=== PATIENT | female | born 1940 | race African-American/Black ===

== ENCOUNTER 2016-12-26 16:52 | Emergency (ER) | payer OTHER, MEDICAID ==
[~2016-12-26] VITALS: Ht 157.5 cm; Wt 53.1 kg
[~2016-12-26 16:52] MED LIST: AMIT PO; ASPI-231 PO; ATOR10TA PO; CARV6.2551 PO; ESTR0.3T PO; FLUT250M2 IN; FURO20TA3 PO; GABA300C8 PO; IBAN150T8 PO; LISI2.5T47 PO; OXYC325T14; PERCOT PO; POTA8TAB2 PO; PREMARIN PO
[2016-12-26 17:20] VITALS: BP 112/62
[2016-12-26] MEDS ORDERED: traMADol HCL 50 MG TAB PO ONE (19:00)
== END 2016-12-26 19:23 | disposition home or self-care (01) ==
LOC: ER 17:00 → EDUNIT# 17:00 → ER 19:23
DX: S52.502A Unspecified fracture of the lower end of left radius, initial encounter for closed fracture (principal); S52.202A Unspecified fracture of shaft of left ulna, initial encounter for closed fracture; S40.012A Contusion of left shoulder, initial encounter; S09.90XA Unspecified injury of head, initial encounter; M54.5 Low back pain; M54.2 Cervicalgia; E78.5 Hyperlipidemia, unspecified; I10 Essential (primary) hypertension; G89.29 Other chronic pain; Z88.6 Allergy status to analgesic agent; Z88.2 Allergy status to sulfonamides; Z90.710 Acquired absence of both cervix and uterus; W19.XXXA Unspecified fall, initial encounter; Y93.89 Activity, other specified; Y99.8 Other external cause status; Y92.89 Other specified places as the place of occurrence of the external cause
CPT/HCPCS: 29125; 70450; 73030; 73110; 73130

== ENCOUNTER 2017-06-27 14:36 | Emergency (ER) | payer OTHER, MEDICAID ==
[~2017-06-27] VITALS: Ht 165.1 cm; Wt 63.5 kg
[~2017-06-27 14:36] MED LIST changes: +GABA-497 PO; -GABA300C8 PO
[2017-06-27] MEDS ORDERED: SODIUM CHLORIDE 0.9% 1,000 ML IV ONE (14:56)
[2017-06-27] MEDS ORDERED: TETANUS-DIPTH-ACEL PERTUSSIS 0.5ML SYRG IM ONE (15:00)
[2017-06-27] MEDS ORDERED: LIDOCAINE 2%HCL (LOCAL ANESTH.) INJ 20ML MDV ID ONE (15:00)
[2017-06-27 15:27] LABS: Basophils # (auto) 0 uL; Basophils % (auto) 0.1 % (0.0-2.0); CONDITION Y; Eosinophils # (auto) 0 uL; Eosinophils % (auto) 0.5 % (0.0-7.0); Hematocrit 39.5 % (36.0-46.0); Hemoglobin 13.3 g/dL (12.2-16.2); Lymphocytes # (auto) 1.5 uL; Lymphocytes % (auto) 15.5 % (10.0-50.0); Mean Corpuscular Hemoglobin 30.2 pg (28.0-32.0); Mean Corpuscular Hgb Conc. 33.6 g/dL (32.0-36.0); Mean Corpuscular Volume 89.9 fL (80.0-100.0); Mean Platelet Volume 7.8 fL (7.4-10.4); Monocytes # (auto) 0.2 uL; Monocytes % (auto) 1.7 % (0.0-12.0); Neutrophils % (auto) 82.2 % (37.0-80.0); Platelet Count (auto) 238 10^3/uL (140-450); Red Cell Distribution Width 14.7 % (11.6-16.0); White Blood Cell 9.7 10^3/uL (4.4-10.8)
[2017-06-27 15:36] LABS: INR 0.95 (0.9-1.15); Prothrombin Time 10.3 sec (9.37-12.3)
[2017-06-27 15:44] LABS: Albumin 3.2 g/dL (3.4-5.0); Alkaline Phosphatase 75 U/L (45-117); Anion Gap 10 (5-15); Aspartate Aminotransferase 18 U/L (15-37); BUN/Creatinine Ratio 17.8; Bilirubin, Total 0.3 mg/dL (0.2-1.0); Blood Urea Nitrogen 16 mg/dL (7-18); Calcium 8.9 mg/dL (8.5-10.1); Carbon Dioxide 27 mmol/L (21-32); Chloride 103 mmol/L (98-107); GFR African American 78 mL/min; GFR Non-African American 64 mL/min; Glucose 79 mg/dL (74-106); Magnesium 2.1 mg/dL (1.6-2.6); Potassium 3.6 mmol/L (3.5-5.1); Sodium 140 mmol/L (136-145); Total Protein 6.8 g/dL (6.4-8.2)
[2017-06-27 16:53] LABS: Urine Bilirubin Negative (Negative); Urine Blood Negative /uL (Negative); Urine Color Yellow (Yellow); Urine Glucose Normal (Normal); Urine Ketone Negative (Negative); Urine Nitrite Negative (Negative); Urine RBC 1 /hpf (0 - 4); Urine Squamous Epithelial Cell FEW /hpf (<5); Urine Urobilinogen Normal (Negative)
[2017-06-27 17:15] VITALS: BP 128/70
== END 2017-06-27 17:59 | disposition home or self-care (01) ==
LOC: EDBD 14:36 → ER 14:38
DX: S01.01XA Laceration without foreign body of scalp, initial encounter (principal); M62.838 Other muscle spasm; E44.1 Mild protein-calorie malnutrition; Z68.23 Body mass index [BMI] 23.0-23.9, adult; R55 Syncope and collapse; F17.210 Nicotine dependence, cigarettes, uncomplicated; I25.10 Atherosclerotic heart disease of native coronary artery without angina pectoris; I51.7 Cardiomegaly; Z88.2 Allergy status to sulfonamides; Z88.6 Allergy status to analgesic agent; Z79.82 Long term (current) use of aspirin; G89.29 Other chronic pain; E78.5 Hyperlipidemia, unspecified; W19.XXXA Unspecified fall, initial encounter; Y93.89 Activity, other specified; Y99.8 Other external cause status; Y92.090 Kitchen in other non-institutional residence as the place of occurrence of the external cause
CPT/HCPCS: 12004; 36415; 70450; 71010; 72125; 80053; 80307; 81001; 83735; 84443; 84484; 85025; 85610; 85730; 90471; 90715; 93005; 94761; 96360; 96361; 99285; J7030; 51702

== ENCOUNTER 2021-04-01 14:23 | Inpatient (IN) | payer OTHER, MEDICAID ==
[~2021-04-01] VITALS: Ht 165.1 cm; Wt 51.2 kg
[~2021-04-01 14:23] MED LIST changes: +ALEN70TA74 PO; -AMIT PO; +AMIT10TA8 PO; +ATOR10TA52 PO; +CARV6.25 PO; -GABA-497 PO; +GABA300C10 PO; -IBAN150T8 PO; +IBAN1TAB2 PO; +LISI-275 PO; +OXY5T PO; +PAR20T PO
[2021-04-01] MEDS ORDERED: SODIUM CHLORIDE 0.9% 1,000 ML IV ONE (15:00)
[2021-04-01 16:26] LABS: Basophils # (auto) 0 10 ^3/uL (0-0.2); Basophils % (auto) 0.7 % (0.0-2.0); Eosinophils # (auto) 0.1 10 ^3/uL (0-0.8); Eosinophils % (auto) 0.9 % (0.0-7.0); Hematocrit 30.8 % (36.0-46.0); Hemoglobin 10.7 g/dL (12.2-16.2); Lymphocytes # (auto) 1.4 10 ^3/uL (0.4-5.4); Lymphocytes % (auto) 24.2 % (10.0-50.0); Mean Corpuscular Hemoglobin 29.1 pg (28.0-32.0); Mean Corpuscular Hgb Conc. 34.8 g/dL (32.0-36.0); Mean Corpuscular Volume 83.6 fL (80.0-100.0); Monocytes # (auto) 0.5 10 ^3/uL (0-1.3); Monocytes % (auto) 8.8 % (0.0-12.0); Neutrophils # (auto) 3.8 10 ^3/uL (1.6-8.6); Neutrophils % (auto) 65.4 % (37.0-80.0); Platelet Count (auto) 190 10^3/uL (140-450); Red Blood Cells 3.68 10^6/uL (4.0-5.20); Red Cell Distribution Width 15.4 % (11.8-14.3); White Blood Cell 5.8 10^3/uL (4.4-10.8)
[2021-04-01 16:49] LABS: Anion Gap 3 (5-15); BUN/Creatinine Ratio 19.3; Blood Urea Nitrogen 17 mg/dL (7-18); Calcium 8.9 mg/dL (8.5-10.1); Carbon Dioxide 25 mmol/L (21-32); Chloride 114 mmol/L (98-107); GFR African American 79 mL/min; GFR Non-African American 65 mL/min; Glucose 87 mg/dL (74-106); Potassium 4.4 mmol/L (3.5-5.1); Sodium 142 mmol/L (136-145)
[2021-04-01 16:57] LABS: Alanine Aminotransferase 18 U/L (13-56); Alkaline Phosphatase 72 U/L (45-117); Aspartate Aminotransferase 18 U/L (15-37); Bilirubin, Total 0.2 mg/dL (0.2-1.0); Total Protein 6.3 g/dL (6.4-8.2)
[2021-04-01] MEDS ORDERED: MORPHINE SULF INJ 2 MG/ML SYRINGE 1ML IV PRN ×2 (19:15)
[2021-04-01] MEDS ORDERED: IPRATROPIUM BROM 0.5 MG/2.5ML INH SOL NEB PRN (19:15)
[2021-04-01] MEDS ORDERED: ACETAMINOPHEN 500 MG TAB PO PRN (19:15)
[2021-04-01] MEDS ORDERED: ALBUTEROL SULF 2.5 MG/0.5ML(0.5%) NEB SOLN NEB PRN (19:15)
[2021-04-01] MEDS ORDERED: NITROGLYCERIN 0.4 MG SL TAB SL PRN (19:15)
[2021-04-01] MEDS ORDERED: HYDROcodone-ACET 5/325MG TAB PO PRN (19:15)
[2021-04-01] MEDS ORDERED: ONDANSETRON HCL 4 MG/2 ML VIAL IV PRN (19:15)
[2021-04-01 20:24] VITALS: BP 144/73
[2021-04-01 20:57] LABS: Urine Bacteria FEW /hpf (None Seen); Urine Blood Negative /uL (Negative); Urine Hyaline Cast FEW /lpf (0 - 2); Urine Mucus FEW (None Seen); Urine Specific Gravity 1.025 (1.001-1.035); Urine WBC 1 /hpf (0 - 5)
[2021-04-02] MEDS ORDERED: cloNIDine HCL 0.1 MG TAB PO ONE (02:45)
[2021-04-02 03:30] VITALS: BP 162/89
[2021-04-02 05:00] VITALS: BP 143/76
[2021-04-02] MEDS ORDERED: INFLUENZA QUAD 2020-2021 0.5 ML SYRG IM ONE (05:30)
[2021-04-02] MEDS ORDERED: PNEUMOCOCCAL VACC POLYS 25 MCG/0.5 ML VIAL IM ONE (05:30)
[2021-04-02 09:00] VITALS: BP 140/72
[2021-04-02] MEDS: FAMOTIDINE 20 MG TAB PO SCH (10:26)
[2021-04-02 13:00] VITALS: BP 141/74
[2021-04-02 16:38] VITALS: BP 156/94
[2021-04-02 22:00] VITALS: BP 147/61
[2021-04-03] VITALS (8 sets, daily range): BP systolic 123–161; BP diastolic 73–110
[2021-04-03] MEDS ORDERED: hydrALAZINE HCL 20 MG/ML VL IV ONE (09:00)
[2021-04-03] MEDS ORDERED: ASPirin-EC 81 mg tab PO SCH (10:00)
[2021-04-03] MEDS ORDERED: LISINOPRIL 5 MG TAB PO SCH (10:00)
[2021-04-03] MEDS: CARVEDILOL 3.125 MG TAB PO SCH ×2 (10:50→22:50)
[2021-04-03] MEDS: FAMOTIDINE 20 MG TAB PO SCH (10:51)
[2021-04-03] MEDS: GABAPENTIN 300 MG CAP PO SCH ×2 (15:52→22:50)
[2021-04-03] MEDS ORDERED: POTASSIUM CHL 10 Meq TABLET PO ONE (18:00)
[2021-04-03] MEDS ORDERED: FUROSEMIDE 40 MG TAB PO ONE (18:00)
[2021-04-04] MEDS ORDERED: POTASSIUM CHL 10 Meq TABLET PO SCH (10:00)
[2021-04-04] MEDS ORDERED: FUROSEMIDE 40 MG TAB PO SCH (10:00)
== END 2021-04-03 23:51 | disposition home health service (06) | DRG 312 ==
LOC: EDUNIT# 14:23 → ER 14:23 → EDBD 14:23 → TELE 19:04 → TELE-CENTR 04-02 03:28
PROVIDERS: ADMIT Nurse Practitioner Acute Care; ATTEND Internal Medicine
DX: R55 Syncope and collapse (principal); E44.0 Moderate protein-calorie malnutrition; I13.0 Hypertensive heart and chronic kidney disease with heart failure and stage 1 through stage 4 chronic kidney disease, or unspecified chronic kidney disease; Z20.822 Contact with and (suspected) exposure to COVID-19; D64.9 Anemia, unspecified; N18.30 Chronic kidney disease, stage 3 unspecified; I50.9 Heart failure, unspecified; J44.9 Chronic obstructive pulmonary disease, unspecified; F17.210 Nicotine dependence, cigarettes, uncomplicated; R94.31 Abnormal electrocardiogram [ECG] [EKG]; F41.9 Anxiety disorder, unspecified; F32.9 Major depressive disorder, single episode, unspecified; I07.1 Rheumatic tricuspid insufficiency; E78.5 Hyperlipidemia, unspecified; Z88.5 Allergy status to narcotic agent; Z88.2 Allergy status to sulfonamides; Z79.899 Other long term (current) drug therapy; Z79.51 Long term (current) use of inhaled steroids; Z86.73 Personal history of transient ischemic attack (TIA), and cerebral infarction without residual deficits; Z90.710 Acquired absence of both cervix and uterus; Z90.89 Acquired absence of other organs; Z68.20 Body mass index [BMI] 20.0-20.9, adult
CPT/HCPCS: 36415; 70450; 70551; 71045; 80053; 81001; 83880; 84484; 85025; 87426; 93005; 93306; 93886; 94640; 95819; 96360; 96361; G0378

== ENCOUNTER 2021-04-23 15:23 | Inpatient (IN) | payer OTHER, MEDICAID ==
[~2021-04-23] VITALS: Ht 157.5 cm; Wt 58.0 kg
[~2021-04-23 15:23] MED LIST changes: -ALEN70TA74 PO; -AMIT10TA8 PO; -ASPI-231 PO; +ASPI1TAB20 PO; -ATOR10TA52 PO; -CARV6.25 PO; -ESTR0.3T PO; -FLUT250M2 IN; -FURO20TA3 PO; -LISI2.5T47 PO; -OXYC325T14; -PAR20T PO; -PERCOT PO; -POTA8TAB2 PO; -PREMARIN PO
[2021-04-23 16:50] LABS: Basophils # (auto) 0 10 ^3/uL (0-0.2); Basophils % (auto) 0.6 % (0.0-2.0); Eosinophils # (auto) 0 10 ^3/uL (0-0.8); Eosinophils % (auto) 0.2 % (0.0-7.0); Hematocrit 32.4 % (36.0-46.0); Hemoglobin 11.4 g/dL (12.2-16.2); Lymphocytes # (auto) 1.4 10 ^3/uL (0.4-5.4); Lymphocytes % (auto) 17.2 % (10.0-50.0); Mean Corpuscular Hemoglobin 28.7 pg (28.0-32.0); Mean Corpuscular Hgb Conc. 35.1 g/dL (32.0-36.0); Mean Corpuscular Volume 81.8 fL (80.0-100.0); Monocytes # (auto) 0.5 10 ^3/uL (0-1.3); Monocytes % (auto) 5.5 % (0.0-12.0); Neutrophils # (auto) 6.3 10 ^3/uL (1.6-8.6); Neutrophils % (auto) 76.5 % (37.0-80.0); Red Blood Cells 3.96 10^6/uL (4.0-5.20); Red Cell Distribution Width 15.7 % (11.8-14.3); White Blood Cell 8.2 10^3/uL (4.4-10.8)
[2021-04-23 17:05] LABS: Potassium 4.3 mmol/L (3.5-5.1)
[2021-04-23 17:09] LABS: Albumin 3.1 g/dL (3.4-5.0); BUN/Creatinine Ratio 16.9; Calcium 9.2 mg/dL (8.5-10.1)
[2021-04-23 17:15] LABS: Bilirubin, Total 0.3 mg/dL (0.2-1.0); Total Protein 6.8 g/dL (6.4-8.2)
[2021-04-23] MEDS ORDERED: MORPHINE SULFATE INJECTION 2 MG/ML SYRG IV ONE (18:15)
[2021-04-23] MEDS ORDERED: ONDANSETRON HCL 4 MG/2 ML VIAL IV ONE (18:15)
[2021-04-23] MEDS ORDERED: NITROGLYCERIN 0.4 MG SL TAB SL PRN (19:00)
[2021-04-23] MEDS ORDERED: MORPHINE SULFATE INJECTION 2 MG/ML SYRG IV PRN (19:00)
[2021-04-23] MEDS ORDERED: ONDANSETRON HCL 4 MG/2 ML VIAL IV PRN (19:00)
[2021-04-23] MEDS ORDERED: ACETAMINOPHEN 500 MG TAB PO PRN (19:00)
[2021-04-23 22:00] VITALS: BP 113/66
[2021-04-23] MEDS: ATORVASTATIN 20 MG TAB PO SCH (22:53)
[2021-04-24 00:28] VITALS: BP 113/66
[2021-04-24] MEDS ORDERED: PARO30TA99 PO (01:47)
[2021-04-24] MEDS ORDERED: DONETAB6 PO (01:47)
[2021-04-24 06:15] LABS: Basophils # (auto) 0 10 ^3/uL (0-0.2); Basophils % (auto) 0.9 % (0.0-2.0); Eosinophils # (auto) 0 10 ^3/uL (0-0.8); Eosinophils % (auto) 0.9 % (0.0-7.0); Hematocrit 30.7 % (36.0-46.0); Hemoglobin 10.8 g/dL (12.2-16.2); Lymphocytes # (auto) 1.9 10 ^3/uL (0.4-5.4); Lymphocytes % (auto) 37.9 % (10.0-50.0); Mean Corpuscular Hemoglobin 28.5 pg (28.0-32.0); Mean Corpuscular Volume 81.4 fL (80.0-100.0); Monocytes # (auto) 0.5 10 ^3/uL (0-1.3); Monocytes % (auto) 9.6 % (0.0-12.0); Neutrophils # (auto) 2.5 10 ^3/uL (1.6-8.6); Neutrophils % (auto) 50.7 % (37.0-80.0); Nucleated Red Blood Cells % 0.1 %; Red Blood Cells 3.78 10^6/uL (4.0-5.20); Red Cell Distribution Width 15.7 % (11.8-14.3)
[2021-04-24 08:38] VITALS: BP 121/61
[2021-04-24] MEDS: FAMOTIDINE 20 MG TAB PO SCH (11:06)
[2021-04-24] MEDS: ASPirin-EC 81 mg tab PO SCH (11:06)
[2021-04-24] MEDS: LISINOPRIL 5 MG TAB PO SCH (11:07)
[2021-04-24 13:00] VITALS: BP 139/72
[2021-04-24] MEDS ORDERED: oxyCODONE HCL 5MG TAB PO PRN (16:00)
[2021-04-24 17:25] VITALS: BP 120/72
[2021-04-24 17:48] LABS: Folate (Folic Acid) 14.75 ng/mL (5.38-24)
[2021-04-24 21:37] VITALS: BP_SYST 114; BP_SYST 130; BP_DIAS 70; BP_DIAS 73
[2021-04-24] MEDS ORDERED: CARVEDILOL 3.125 MG TAB PO SCH (22:00)
[2021-04-24] MEDS: MAGNESIUM OXIDE 400 MG TAB PO SCH (22:11)
[2021-04-24] MEDS: GABAPENTIN 300 MG CAP PO SCH (22:11)
[2021-04-24] MEDS: ATORVASTATIN 20 MG TAB PO SCH (22:13)
[2021-04-25 05:31] VITALS: BP 163/79
[2021-04-25 07:06] LABS: RPR Non Reactive (Non Reactive)
[2021-04-25 08:30] VITALS: BP 140/69
[2021-04-25] MEDS ORDERED: DONEPEZIL HYDROCHLORIDE 5 MG TAB PO SCH (10:00)
[2021-04-25] MEDS: MAGNESIUM OXIDE 400 MG TAB PO SCH (10:14)
[2021-04-25] MEDS: FAMOTIDINE 20 MG TAB PO SCH (10:14)
[2021-04-25] MEDS: ASPirin-EC 81 mg tab PO SCH (10:14)
[2021-04-25] MEDS: GABAPENTIN 300 MG CAP PO SCH (10:14)
[2021-04-25] MEDS: LISINOPRIL 5 MG TAB PO SCH (10:15)
[2021-04-25] MEDS ORDERED: MAGN241.4 PO (10:37)
[2021-04-25 12:14] VITALS: BP 140/69
[2021-04-25 12:30] VITALS: BP 160/83
== END 2021-04-25 14:30 | disposition home or self-care (01) | DRG 312 ==
LOC: ER 15:23 → EDBD 15:23 → TELE 18:50 → TELE-WESTW 20:37
PROVIDERS: ADMIT Nurse Practitioner Acute Care; ATTEND Hospitalist
DX: R55 Syncope and collapse (principal); E44.0 Moderate protein-calorie malnutrition; I13.0 Hypertensive heart and chronic kidney disease with heart failure and stage 1 through stage 4 chronic kidney disease, or unspecified chronic kidney disease; Z20.822 Contact with and (suspected) exposure to COVID-19; D64.9 Anemia, unspecified; J44.9 Chronic obstructive pulmonary disease, unspecified; F32.9 Major depressive disorder, single episode, unspecified; F03.90 Unspecified dementia, unspecified severity, without behavioral disturbance, psychotic disturbance, mood disturbance, and anxiety; N18.30 Chronic kidney disease, stage 3 unspecified; R00.1 Bradycardia, unspecified; F17.210 Nicotine dependence, cigarettes, uncomplicated; R94.31 Abnormal electrocardiogram [ECG] [EKG]; Z88.5 Allergy status to narcotic agent; Z88.2 Allergy status to sulfonamides; Z88.6 Allergy status to analgesic agent; Z68.22 Body mass index [BMI] 22.0-22.9, adult; Z79.899 Other long term (current) drug therapy; Z90.710 Acquired absence of both cervix and uterus; Z90.49 Acquired absence of other specified parts of digestive tract; Z90.89 Acquired absence of other organs
CPT/HCPCS: 36415; 70450; 71045; 80053; 82607; 82746; 83735; 84443; 84484; 85025; 85049; 86592; 87081; 87426; 93005; 96374; 96375; 97163; 99291; G0378; J2405

== ENCOUNTER 2021-11-18 08:49 | Inpatient (IN) | payer OTHER, MEDICAID ==
[~2021-11-18] VITALS: Ht 157.5 cm; Wt 51.0 kg
[~2021-11-18 08:49] MED LIST changes: -CARV6.2551 PO; +DONETAB6 PO; +MAGN241.4 PO; -OXY5T PO
[2021-11-18] MEDS ORDERED: NALOXONE HCL 0.4 MG/ML VIAL ONE (08:54)
[2021-11-18] MEDS ORDERED: MIDAZOLAM HCL 5 MG/ML-1ML VIAL ONE (09:03)
[2021-11-18] MEDS ORDERED: ETOMIDATE (2MG/ML) 20ML VIAL IV ONE ×2 (09:03→10:00)
[2021-11-18] MEDS ORDERED: MIDAZOLAM DRIP 50 mg/50mL 50 ML IV ONE (09:12)
[2021-11-18] MEDS ORDERED: NALOXONE HCL 0.4 MG/ML VIAL IV ONE (09:15)
[2021-11-18] MEDS: MIDAZOLAM DRIP 50 mg/50mL 50 ML IV SCH (09:39)
[2021-11-18] MEDS: NOREPINEPHRINE 8 MG/250ML KIT 250 ML IV SCH (09:40)
[2021-11-18] MEDS ORDERED: MIDAZOLAM HCL 5 MG/ML-1ML VIAL IV ONE (10:00)
[2021-11-18 10:07] LABS: Red Cell Distribution Width 18.7 % (11.8-14.3); White Blood Cell 3.6 10^3/uL (4.4-10.8)
[2021-11-18 10:10] LABS: Hematocrit 30.3 % (36.0-46.0); Hemoglobin 9.9 g/dL (12.2-16.2); Mean Corpuscular Hemoglobin 25.6 pg (28.0-32.0); Mean Corpuscular Hgb Conc. 32.7 g/dL (32.0-36.0); Mean Corpuscular Volume 78.3 fL (80.0-100.0); Red Blood Cells 3.88 10^6/uL (4.0-5.20)
[2021-11-18 10:19] LABS: Basophils % (manual) 0 (0.0-2.0); Blast Cells 0; Eosinophils % (manual) 0 (0-7); Metamyelocytes % 0; Myelocytes % 0; Promyelocytes % 0; Reactive Lymphocytes 0
[2021-11-18 10:21] LABS: INR 0.99 (0.9-1.15); Partial Thromboplastin Time 25.6 sec (23.6-33.0)
[2021-11-18 10:25] LABS: Alanine Aminotransferase 29 U/L (13-56); Albumin 2.6 g/dL (3.4-5.0); Anion Gap 6 (5-15); Calcium 8.2 mg/dL (8.5-10.1); Carbon Dioxide 28 mmol/L (21-32); Chloride 107 mmol/L (98-107); Glucose 104 mg/dL (74-106); Sodium 141 mmol/L (136-145)
[2021-11-18 10:30] LABS: Alkaline Phosphatase 64 U/L (45-117); Aspartate Aminotransferase 37 U/L (15-37); BUN/Creatinine Ratio 33.1; Bilirubin, Total 0.4 mg/dL (0.2-1.0); Blood Alcohol < 3.0 mg/dL (0-5); GFR African American 24 mL/min; GFR Non-African American 20 mL/min; Total Protein 5.7 g/dL (6.4-8.2)
[2021-11-18 10:52] LABS: Lactic Acid w/Reflex 2.4 mmol/L (0.4-2.0)
[2021-11-18 11:06] LABS: Blood Urea Nitrogen 81 mg/dL (7-18)
[2021-11-18] MEDS ORDERED: cefTRIAXone 1GM/50ML D5W 50 ML IV ONE (11:15)
[2021-11-18] MEDS ORDERED: SODIUM CHLORIDE 0.9% 1,000 ML IV ONE ×2 (11:30)
[2021-11-18 11:36] LABS: Urine Bacteria FEW /hpf (None Seen); Urine Blood Negative /uL (Negative); Urine Hyaline Cast MOD /lpf (0 - 2); Urine Specific Gravity 1.017 (1.001-1.035); Urine WBC 1 /hpf (0 - 5)
[2021-11-18 11:50] LABS: Band Neutrophils % (manual) 6; Lymphocytes % (manual) 25 (10.0-50.0); Monocytes % (manual) 7 (0-12)
[2021-11-18 12:00] LABS: Alcohol, Urine < 3.0 mg/dL (0-10); Amphetamine Screen, Urine NEGATIVE (NEGATIVE); Barbiturate Scree,Urine NEGATIVE (NEGATIVE); Benzodiazephine Screen, Urine NEGATIVE (NEGATIVE); Cannabinoid Screen, Urine NEGATIVE (NEGATIVE); Cocaine Screen, Urine NEGATIVE (NEGATIVE); Opiate Scree,Urine NEGATIVE (NEGATIVE); Phencyclidine Screen, Urine NEGATIVE (NEGATIVE)
[2021-11-18] MEDS ORDERED: NITROGLYCERIN 0.4 MG SL TAB SL PRN (12:45)
[2021-11-18] MEDS ORDERED: SODIUM CHLORIDE 0.9% 1,000 ML IV SCH (12:45)
[2021-11-18] MEDS ORDERED: MORPHINE SULFATE INJECTION 2 MG/ML SYRG IV PRN (12:45)
[2021-11-18 15:04] VITALS: BP 136/78
[2021-11-18] MEDS: ENOXAPARIN SOD 40 MG/0.4 ML SYRINGE SC SCH (16:24)
[2021-11-18 17:48] VITALS: BP 113/69
[2021-11-18] MEDS: SODIUM CHLORIDE 0.9% 1,000 ML IV SCH (18:20)
[2021-11-18 22:23] VITALS: BP 146/66
[2021-11-19 02:30] VITALS: BP 130/55
[2021-11-19] MEDS ORDERED: fentaNYL Drip 2500mCg/250mlNS 250 ML IV ONE (03:12)
[2021-11-19] MEDS: SODIUM CHLORIDE 0.9% 1,000 ML IV SCH ×3 (03:44→21:22)
[2021-11-19] MEDS: fentaNYL Drip 2500mCg/250mlNS 250 ML IV SCH (04:35)
[2021-11-19] MEDS: NOREPINEPHRINE 8 MG/250ML KIT 250 ML IV SCH ×2 (05:33→14:31)
[2021-11-19 06:53] VITALS: BP 120/57
[2021-11-19 08:24] LABS: Basophils # (auto) 0 10 ^3/uL (0-0.2); Eosinophils # (auto) 0 10 ^3/uL (0-0.8); Lymphocytes # (auto) 0.8 10 ^3/uL (0.4-5.4); Nucleated Red Blood Cells % 0.6 %
[2021-11-19 08:25] LABS: Basophils % (auto) 0.6 % (0.0-2.0); Hematocrit 33.7 % (36.0-46.0); Lymphocytes % (auto) 12.6 % (10.0-50.0); Mean Corpuscular Hemoglobin 25.6 pg (28.0-32.0); Mean Corpuscular Hgb Conc. 32.5 g/dL (32.0-36.0); Mean Corpuscular Volume 78.7 fL (80.0-100.0); Monocytes # (auto) 0.9 10 ^3/uL (0-1.3); Neutrophils # (auto) 4.8 10 ^3/uL (1.6-8.6); Neutrophils % (auto) 72.8 % (37.0-80.0); Red Blood Cells 4.29 10^6/uL (4.0-5.20); Red Cell Distribution Width 18.5 % (11.8-14.3); White Blood Cell 6.6 10^3/uL (4.4-10.8)
[2021-11-19 08:37] LABS: Albumin 2.7 g/dL (3.4-5.0); Calcium 8.6 mg/dL (8.5-10.1); Potassium 4.5 mmol/L (3.5-5.1)
[2021-11-19 08:41] LABS: BUN/Creatinine Ratio 44.8; Bilirubin, Total 0.3 mg/dL (0.2-1.0)
[2021-11-19] MEDS: MIDAZOLAM DRIP 50 mg/50mL 50 ML IV SCH ×2 (09:15→18:04)
[2021-11-19] MEDS: ENOXAPARIN SOD 40 MG/0.4 ML SYRINGE SC SCH (09:56)
[2021-11-19 10:20] VITALS: BP 112/53
[2021-11-19] MEDS ORDERED: LINEZOLID 600MG TABLET PO SCH (11:00)
[2021-11-19] MEDS: ACETAMINOPHEN 650 mg PER 20.3 mL UD GT PRN (12:33)
[2021-11-19 14:06] VITALS: BP 94/41
[2021-11-19] MEDS ORDERED: PANTOPRAZOLE 40 MG/10 ML VIAL INJ IV ONE (16:45)
[2021-11-19] MEDS ORDERED: VANCOMYCIN PER PHARMACY 0 MG IV SCH (17:45)
[2021-11-19] MEDS ORDERED: VANCOMYCIN 750mg/250ml 250 ML IV ONE (18:30)
[2021-11-19 19:16] VITALS: BP 94/34
[2021-11-19] MEDS: CEFTRIAXONE SODIUM 2 GM in D5W 5% 50 ML IV SCH (21:22)
[2021-11-19 21:46] VITALS: BP 112/47
[2021-11-20] VITALS (7 sets, daily range): BP systolic 109–160; BP diastolic 45–61
[2021-11-20] MEDS: fentaNYL Drip 2500mCg/250mlNS 250 ML IV SCH (03:15)
[2021-11-20] MEDS: SODIUM CHLORIDE 0.9% 1,000 ML IV SCH ×2 (09:33→19:46)
[2021-11-20] MEDS: PANTOPRAZOLE 40 MG/10 ML VIAL INJ IV SCH (09:40)
[2021-11-20] MEDS: CEFTRIAXONE SODIUM 2 GM in D5W 5% 50 ML IV SCH (09:40)
[2021-11-20] MEDS: ENOXAPARIN SOD 40 MG/0.4 ML SYRINGE SC SCH (09:40)
[2021-11-20] MEDS ORDERED: VANCOMYCIN 1GM/250ML 250 ML IV ONE (10:00)
[2021-11-20] MEDS: ACETAMINOPHEN 650 mg PER 20.3 mL UD GT PRN (11:25)
[2021-11-20 14:43] LABS: CSF White Blood Cells 1 CUMM (0-5)
[2021-11-20 15:01] LABS: Protein, CSF 36.8 mg/dL (15-45)
[2021-11-20 19:38] LABS: Basophils # (auto) 0 10 ^3/uL (0-0.2); Basophils % (auto) 0.4 % (0.0-2.0); Eosinophils # (auto) 0 10 ^3/uL (0-0.8); Eosinophils % (auto) 0.1 % (0.0-7.0); Hematocrit 32.4 % (36.0-46.0); Hemoglobin 10.3 g/dL (12.2-16.2); Lymphocytes # (auto) 0.8 10 ^3/uL (0.4-5.4); Lymphocytes % (auto) 13.8 % (10.0-50.0); Mean Corpuscular Hemoglobin 25.2 pg (28.0-32.0); Mean Corpuscular Hgb Conc. 31.8 g/dL (32.0-36.0); Mean Corpuscular Volume 79.3 fL (80.0-100.0); Monocytes # (auto) 0.4 10 ^3/uL (0-1.3); Monocytes % (auto) 7.4 % (0.0-12.0); Neutrophils # (auto) 4.4 10 ^3/uL (1.6-8.6); Neutrophils % (auto) 78.3 % (37.0-80.0); Nucleated Red Blood Cells % 0.7 %; Red Blood Cells 4.08 10^6/uL (4.0-5.20); White Blood Cell 5.6 10^3/uL (4.4-10.8)
[2021-11-20 19:53] LABS: BUN/Creatinine Ratio 43.2; Calcium 8.6 mg/dL (8.5-10.1); Potassium 4.2 mmol/L (3.5-5.1)
[2021-11-21] VITALS (51 sets, daily range): BP systolic 111–161; BP diastolic 49–86
[2021-11-21] MEDS: fentaNYL Drip 2500mCg/250mlNS 250 ML IV SCH (03:15)
[2021-11-21] MEDS: SODIUM CHLORIDE 0.9% 1,000 ML IV SCH ×2 (05:30→11:14)
[2021-11-21 07:30] LABS: Basophils # (auto) 0 10 ^3/uL (0-0.2); Eosinophils # (auto) 0 10 ^3/uL (0-0.8); Lymphocytes # (auto) 0.5 10 ^3/uL (0.4-5.4); Monocytes # (auto) 0.3 10 ^3/uL (0-1.3); White Blood Cell 4.8 10^3/uL (4.4-10.8)
[2021-11-21 07:32] LABS: Basophils % (auto) 0.4 % (0.0-2.0); Eosinophils % (auto) 0.2 % (0.0-7.0); Hematocrit 32.6 % (36.0-46.0); Hemoglobin 10.3 g/dL (12.2-16.2); Lymphocytes % (auto) 10.1 % (10.0-50.0); Mean Corpuscular Hemoglobin 25.7 pg (28.0-32.0); Mean Corpuscular Hgb Conc. 31.7 g/dL (32.0-36.0); Monocytes % (auto) 5.9 % (0.0-12.0); Neutrophils % (auto) 83.4 % (37.0-80.0); Nucleated Red Blood Cells % 0.3 %; Red Blood Cells 4.03 10^6/uL (4.0-5.20); Red Cell Distribution Width 19.3 % (11.8-14.3)
[2021-11-21 07:43] LABS: BUN/Creatinine Ratio 42.7; Calcium 8.3 mg/dL (8.5-10.1); Magnesium 3.5 mg/dL (1.6-2.6); Potassium 4.4 mmol/L (3.5-5.1)
[2021-11-21] MEDS: MIDAZOLAM DRIP 50 mg/50mL 50 ML IV SCH (09:15)
[2021-11-21] MEDS: ENOXAPARIN SOD 40 MG/0.4 ML SYRINGE SC SCH (09:40)
[2021-11-21] MEDS: PANTOPRAZOLE 40 MG/10 ML VIAL INJ IV SCH (09:40)
[2021-11-21] MEDS: DexAMETHasone SOD PHOS 10MG/1ML VIAL INJ IV SCH (10:00)
[2021-11-21] MEDS ORDERED: D5W 5% 1,000 ML IV SCH (12:00)
[2021-11-21] MEDS: VANCOMYCIN 1GM/250ML 250 ML IV SCH (13:09)
[2021-11-21] MEDS: ACETAMINOPHEN 650 mg PER 20.3 mL UD GT PRN (13:56)
[2021-11-21] MEDS: NOREPINEPHRINE 8 MG/250ML KIT 250 ML IV SCH (19:00)
[2021-11-22] VITALS (64 sets, daily range): BP systolic 80–237; BP diastolic 46–123
[2021-11-22 05:16] LABS: Basophils # (auto) 0 10 ^3/uL (0-0.2); Eosinophils # (auto) 0 10 ^3/uL (0-0.8); Eosinophils % (auto) 0.1 % (0.0-7.0); Hemoglobin 10.3 g/dL (12.2-16.2); White Blood Cell 2.8 10^3/uL (4.4-10.8)
[2021-11-22 05:19] LABS: Basophils % (auto) 0.4 % (0.0-2.0); Hematocrit 31.6 % (36.0-46.0); Lymphocytes # (auto) 0.3 10 ^3/uL (0.4-5.4); Lymphocytes % (auto) 10.4 % (10.0-50.0); Mean Corpuscular Hemoglobin 26.6 pg (28.0-32.0); Mean Corpuscular Hgb Conc. 32.6 g/dL (32.0-36.0); Mean Corpuscular Volume 81.7 fL (80.0-100.0); Monocytes # (auto) 0.2 10 ^3/uL (0-1.3); Monocytes % (auto) 5.7 % (0.0-12.0); Neutrophils # (auto) 2.4 10 ^3/uL (1.6-8.6); Neutrophils % (auto) 83.4 % (37.0-80.0); Nucleated Red Blood Cells % 0.3 %; Red Blood Cells 3.87 10^6/uL (4.0-5.20); Red Cell Distribution Width 19.6 % (11.8-14.3)
[2021-11-22 05:55] LABS: BUN/Creatinine Ratio 34.9; Calcium 8.7 mg/dL (8.5-10.1); Potassium 4.3 mmol/L (3.5-5.1)
[2021-11-22] MEDS: SOD CHL 0.45% 1,000 ML IV SCH (09:15)
[2021-11-22] MEDS: ENOXAPARIN SOD 40 MG/0.4 ML SYRINGE SC SCH (10:00)
[2021-11-22] MEDS: DexAMETHasone SOD PHOS 10MG/1ML VIAL INJ IV SCH (10:00)
[2021-11-22] MEDS: PANTOPRAZOLE 40 MG/10 ML VIAL INJ IV SCH (10:00)
[2021-11-22] MEDS: VANCOMYCIN 1GM/250ML 250 ML IV SCH (12:00)
[2021-11-23] VITALS (37 sets, daily range): BP systolic 63–201; BP diastolic 40–105
[2021-11-23] MEDS: SOD CHL 0.45% 1,000 ML IV SCH ×2 (05:45→06:10)
[2021-11-23 06:11] LABS: Hemoglobin 10.3 g/dL (12.2-16.2); White Blood Cell 3.5 10^3/uL (4.4-10.8)
[2021-11-23 06:16] LABS: Hematocrit 31.7 % (36.0-46.0); Mean Corpuscular Hemoglobin 26.1 pg (28.0-32.0); Mean Corpuscular Hgb Conc. 32.6 g/dL (32.0-36.0); Mean Corpuscular Volume 79.9 fL (80.0-100.0); Red Blood Cells 3.97 10^6/uL (4.0-5.20); Red Cell Distribution Width 19.9 % (11.8-14.3)
[2021-11-23 06:19] LABS: Basophils % (manual) 0 (0.0-2.0); Blast Cells 0; Eosinophils % (manual) 0 (0-7); Metamyelocytes % 0; Myelocytes % 0; Promyelocytes % 0; Reactive Lymphocytes 0
[2021-11-23 06:29] LABS: Phosphorus 1.8 mg/dL (2.5-4.90); Potassium 4.2 mmol/L (3.5-5.1)
[2021-11-23] MEDS: ENOXAPARIN SOD 40 MG/0.4 ML SYRINGE SC SCH (10:29)
[2021-11-23] MEDS: DexAMETHasone SOD PHOS 10MG/1ML VIAL INJ IV SCH (10:29)
[2021-11-23] MEDS: PANTOPRAZOLE 40 MG/10 ML VIAL INJ IV SCH (10:29)
[2021-11-23 10:31] LABS: Band Neutrophils % (manual) 6; Lymphocytes % (manual) 9 (10.0-50.0); Monocytes % (manual) 10 (0-12)
[2021-11-23] MEDS ORDERED: PROPOFOL 100 ML IV ONE (11:03)
[2021-11-23] MEDS ORDERED: POTASSIUM PHOSPHATE 44 MEQ in D5W 5% 250 ML IV ONE (11:30)
[2021-11-23] MEDS: ACETAMINOPHEN 650 mg PER 20.3 mL UD GT PRN (11:43)
[2021-11-23] MEDS: VANCOMYCIN 1GM/250ML 250 ML IV SCH (12:00)
[2021-11-23] MEDS ORDERED: VANCOMYCIN 1GM/250ML 250 ML IV ONE (13:29)
[2021-11-23] MEDS: PROPOFOL 100 ML IV SCH (22:00)
[2021-11-23] MEDS: MIDAZOLAM DRIP 50 mg/50mL 50 ML IV SCH (23:00)
[2021-11-24] VITALS (85 sets, daily range): BP systolic 70–160; BP diastolic 50–111
[2021-11-24] MEDS: MIDAZOLAM DRIP 50 mg/50mL 50 ML IV SCH ×3 (05:00→21:24)
[2021-11-24] MEDS: SOD CHL 0.45% 1,000 ML IV SCH ×4 (06:51→21:23)
[2021-11-24] MEDS: NOREPINEPHRINE 8 MG/250ML KIT 250 ML IV SCH ×4 (07:45→21:26)
[2021-11-24] MEDS: fentaNYL Drip 2500mCg/250mlNS 250 ML IV SCH ×3 (07:45→07:49)
[2021-11-24 10:25] LABS: Basophils # (auto) 0.1 10 ^3/uL (0-0.2); Basophils % (auto) 2.2 % (0.0-2.0); Eosinophils # (auto) 0 10 ^3/uL (0-0.8); Eosinophils % (auto) 0.1 % (0.0-7.0); Hematocrit 36.1 % (36.0-46.0); Hemoglobin 11.8 g/dL (12.2-16.2); Lymphocytes # (auto) 0.6 10 ^3/uL (0.4-5.4); Lymphocytes % (auto) 13.3 % (10.0-50.0); Mean Corpuscular Hemoglobin 28.2 pg (28.0-32.0); Mean Corpuscular Hgb Conc. 32.7 g/dL (32.0-36.0); Mean Corpuscular Volume 86.2 fL (80.0-100.0); Monocytes # (auto) 0.4 10 ^3/uL (0-1.3); Monocytes % (auto) 9.8 % (0.0-12.0); Neutrophils # (auto) 3.4 10 ^3/uL (1.6-8.6); Neutrophils % (auto) 74.6 % (37.0-80.0); Nucleated Red Blood Cells % 1.4 %; Red Blood Cells 4.19 10^6/uL (4.0-5.20); White Blood Cell 4.5 10^3/uL (4.4-10.8)
[2021-11-24 10:27] LABS: Red Cell Distribution Width 20.1 % (11.8-14.3)
[2021-11-24] MEDS: PANTOPRAZOLE 40 MG/10 ML VIAL INJ IV SCH (10:33)
[2021-11-24] MEDS: DexAMETHasone SOD PHOS 10MG/1ML VIAL INJ IV SCH (10:33)
[2021-11-24] MEDS: ENOXAPARIN SOD 40 MG/0.4 ML SYRINGE SC SCH (10:33)
[2021-11-24 10:44] LABS: BUN/Creatinine Ratio 34.9; Calcium 8.7 mg/dL (8.5-10.1); Potassium 5.3 mmol/L (3.5-5.1)
[2021-11-24] MEDS: PROPOFOL 100 ML IV SCH (12:58)
[2021-11-25] VITALS (95 sets, daily range): BP systolic 89–130; BP diastolic 52–85
[2021-11-25] MEDS: fentaNYL Drip 2500mCg/250mlNS 250 ML IV SCH (03:15)
[2021-11-25] MEDS: MIDAZOLAM DRIP 50 mg/50mL 50 ML IV SCH (04:55)
[2021-11-25 07:12] LABS: Potassium 5.1 mmol/L (3.5-5.1)
[2021-11-25 07:21] LABS: Albumin 1.7 g/dL (3.4-5.0); BUN/Creatinine Ratio 36.4; Bilirubin, Total 0.3 mg/dL (0.2-1.0); Calcium 8.9 mg/dL (8.5-10.1); Magnesium 2.4 mg/dL (1.6-2.6)
[2021-11-25] MEDS: DexAMETHasone SOD PHOS 10MG/1ML VIAL INJ IV SCH (09:36)
[2021-11-25] MEDS: PANTOPRAZOLE 40 MG/10 ML VIAL INJ IV SCH (09:36)
[2021-11-25] MEDS: PROPOFOL 100 ML IV SCH (09:37)
[2021-11-25] MEDS: ENOXAPARIN SOD 40 MG/0.4 ML SYRINGE SC SCH (09:37)
[2021-11-25] MEDS ORDERED: OMNIPAQUE ORAL SOLN 500ml 12mg/ml PO ONE (12:39)
[2021-11-25] MEDS ORDERED: IOHEXOL 300 MG/ML 100ML BOTTLE IJ ONE (13:48)
[2021-11-25] MEDS: SOD CHL 0.45% 1,000 ML IV SCH (14:58)
[2021-11-25] MEDS ORDERED: VANCOMYCIN 500 MG in D5W 5% 100 ML IV ONE (18:00)
[2021-11-25] MEDS: NOREPINEPHRINE 8 MG/250ML KIT 250 ML IV SCH (23:03)
[2021-11-26] VITALS (88 sets, daily range): BP systolic 87–158; BP diastolic 50–101
[2021-11-26] MEDS: MIDAZOLAM DRIP 50 mg/50mL 50 ML IV SCH (02:35)
[2021-11-26] MEDS: PROPOFOL 100 ML IV SCH (02:42)
[2021-11-26 04:51] LABS: Hematocrit 31.8 % (36.0-46.0); Hemoglobin 11.3 g/dL (12.2-16.2); Mean Corpuscular Hemoglobin 31.5 pg (28.0-32.0); Mean Corpuscular Hgb Conc. 35.7 g/dL (32.0-36.0); Mean Corpuscular Volume 88.4 fL (80.0-100.0); White Blood Cell 5.9 10^3/uL (4.4-10.8)
[2021-11-26 05:02] LABS: Albumin 1.9 g/dL (3.4-5.0); BUN/Creatinine Ratio 35.5; Calcium 8.9 mg/dL (8.5-10.1)
[2021-11-26 05:04] LABS: Bilirubin, Total 0.3 mg/dL (0.2-1.0); Total Protein 5.1 g/dL (6.4-8.2)
[2021-11-26 05:22] LABS: Red Cell Distribution Width 20.5 % (11.8-14.3)
[2021-11-26 05:24] LABS: Band Neutrophils % (manual) 0; Basophils % (manual) 0 (0.0-2.0); Blast Cells 0; Eosinophils % (manual) 0 (0-7); Metamyelocytes % 0; Promyelocytes % 0; Reactive Lymphocytes 0
[2021-11-26] MEDS: SOD CHL 0.45% 1,000 ML IV SCH (06:35)
[2021-11-26 07:50] LABS: Lymphocytes % (manual) 10 (10.0-50.0); Monocytes % (manual) 4 (0-12); Myelocytes % 1
[2021-11-26] MEDS: fentaNYL Drip 2500mCg/250mlNS 250 ML IV SCH (10:56)
[2021-11-26] MEDS: DexAMETHasone SOD PHOS 10MG/1ML VIAL INJ IV SCH (10:56)
[2021-11-26] MEDS: PANTOPRAZOLE 40 MG/10 ML VIAL INJ IV SCH (10:57)
[2021-11-26] MEDS: ENOXAPARIN SOD 40 MG/0.4 ML SYRINGE SC SCH (10:57)
[2021-11-26] MEDS: SODIUM CHLORIDE 0.9% 1,000 ML IV SCH (11:37)
[2021-11-26] MEDS: ALBUMIN 25% 100 ML IV SCH ×2 (11:38→20:15)
[2021-11-27] VITALS (34 sets, daily range): BP systolic 114–169; BP diastolic 63–105
[2021-11-27] MEDS: SODIUM CHLORIDE 0.9% 1,000 ML IV SCH ×2 (00:50→16:49)
[2021-11-27] MEDS: METOPROLOL TARTRATE 1MG/1ML-5ML VIAL IV PRN ×2 (00:53→09:37)
[2021-11-27] MEDS: ALBUMIN 25% 100 ML IV SCH (03:44)
[2021-11-27 05:06] LABS: Basophils # (auto) 0 10 ^3/uL (0-0.2); Basophils % (auto) 0.1 % (0.0-2.0); Eosinophils # (auto) 0 10 ^3/uL (0-0.8); Hematocrit 25.6 % (36.0-46.0); Hemoglobin 9.1 g/dL (12.2-16.2); Lymphocytes # (auto) 0.5 10 ^3/uL (0.4-5.4); Lymphocytes % (auto) 9.3 % (10.0-50.0); Mean Corpuscular Hemoglobin 33.9 pg (28.0-32.0); Mean Corpuscular Hgb Conc. 35.6 g/dL (32.0-36.0); Mean Corpuscular Volume 95.2 fL (80.0-100.0); Monocytes # (auto) 0.3 10 ^3/uL (0-1.3); Monocytes % (auto) 5.8 % (0.0-12.0); Neutrophils # (auto) 4.7 10 ^3/uL (1.6-8.6); Neutrophils % (auto) 84.8 % (37.0-80.0); Nucleated Red Blood Cells % 0.3 %; Red Blood Cells 2.69 10^6/uL (4.0-5.20); White Blood Cell 5.5 10^3/uL (4.4-10.8)
[2021-11-27 05:19] LABS: Red Cell Distribution Width 20.7 % (11.8-14.3)
[2021-11-27 05:39] LABS: Albumin 2.9 g/dL (3.4-5.0); BUN/Creatinine Ratio 43.7; Calcium 9.1 mg/dL (8.5-10.1); Potassium 4.6 mmol/L (3.5-5.1)
[2021-11-27 05:42] LABS: Bilirubin, Total 0.5 mg/dL (0.2-1.0); Total Protein 5.3 g/dL (6.4-8.2)
[2021-11-27] MEDS: PROPOFOL 100 ML IV SCH ×2 (07:30→18:53)
[2021-11-27] MEDS: NOREPINEPHRINE 8 MG/250ML KIT 250 ML IV SCH (09:15)
[2021-11-27] MEDS: PANTOPRAZOLE 40 MG/10 ML VIAL INJ IV SCH ×2 (09:22→09:24)
[2021-11-27] MEDS: DexAMETHasone SOD PHOS 10MG/1ML VIAL INJ IV SCH (09:22)
[2021-11-27] MEDS: ENOXAPARIN SOD 40 MG/0.4 ML SYRINGE SC SCH (09:23)
[2021-11-27] MEDS ORDERED: VANCOMYCIN 500 MG in D5W 5% 100 ML IV ONE (15:00)
[2021-11-28] VITALS (51 sets, daily range): BP systolic 106–157; BP diastolic 64–103
[2021-11-28] MEDS: PROPOFOL 100 ML IV SCH ×2 (02:57→23:17)
[2021-11-28 06:43] LABS: Basophils # (auto) 0 10 ^3/uL (0-0.2); Basophils % (auto) 0.3 % (0.0-2.0); Eosinophils # (auto) 0 10 ^3/uL (0-0.8); Eosinophils % (auto) 0.2 % (0.0-7.0); Hematocrit 27.7 % (36.0-46.0); Hemoglobin 9.7 g/dL (12.2-16.2); Lymphocytes # (auto) 0.8 10 ^3/uL (0.4-5.4); Lymphocytes % (auto) 13.8 % (10.0-50.0); Mean Corpuscular Hemoglobin 32.6 pg (28.0-32.0); Mean Corpuscular Hgb Conc. 35.1 g/dL (32.0-36.0); Mean Corpuscular Volume 92.7 fL (80.0-100.0); Monocytes # (auto) 0.5 10 ^3/uL (0-1.3); Monocytes % (auto) 8.2 % (0.0-12.0); Neutrophils # (auto) 4.5 10 ^3/uL (1.6-8.6); Neutrophils % (auto) 77.5 % (37.0-80.0); Nucleated Red Blood Cells % 0.4 %; Red Blood Cells 2.98 10^6/uL (4.0-5.20); Red Cell Distribution Width 20.9 % (11.8-14.3); White Blood Cell 5.9 10^3/uL (4.4-10.8)
[2021-11-28 07:27] LABS: Calcium 9.2 mg/dL (8.5-10.1); Magnesium 2.6 mg/dL (1.6-2.6); Potassium 4.4 mmol/L (3.5-5.1)
[2021-11-28 07:28] LABS: BUN/Creatinine Ratio 44.6; Phosphorus 2.4 mg/dL (2.5-4.90)
[2021-11-28] MEDS: SODIUM CHLORIDE 0.9% 1,000 ML IV SCH ×3 (08:00→21:35)
[2021-11-28] MEDS: NOREPINEPHRINE 8 MG/250ML KIT 250 ML IV SCH (09:15)
[2021-11-28] MEDS: PANTOPRAZOLE 40 MG/10 ML VIAL INJ IV SCH (10:00)
[2021-11-28] MEDS: DexAMETHasone SOD PHOS 10MG/1ML VIAL INJ IV SCH (10:00)
[2021-11-28] MEDS: ENOXAPARIN SOD 40 MG/0.4 ML SYRINGE SC SCH (10:00)
[2021-11-29] VITALS (89 sets, daily range): BP systolic 87–152; BP diastolic 52–100
[2021-11-29] MEDS: NOREPINEPHRINE 8 MG/250ML KIT 250 ML IV SCH (03:45)
[2021-11-29] MEDS: DexAMETHasone SOD PHOS 10MG/1ML VIAL INJ IV SCH (08:18)
[2021-11-29] MEDS: ENOXAPARIN SOD 40 MG/0.4 ML SYRINGE SC SCH (08:19)
[2021-11-29] MEDS: PANTOPRAZOLE 40 MG/10 ML VIAL INJ IV SCH (08:19)
[2021-11-29] MEDS: PROPOFOL 100 ML IV SCH (12:46)
[2021-11-29] MEDS: ATORVASTATIN 20 MG TAB PO SCH (22:33)
[2021-11-30] VITALS (98 sets, daily range): BP systolic 89–141; BP diastolic 50–84
[2021-11-30] MEDS: PROPOFOL 100 ML IV SCH ×3 (00:22→16:35)
[2021-11-30] MEDS: SODIUM CHLORIDE 0.9% 1,000 ML IV SCH ×3 (01:00→22:04)
[2021-11-30 04:38] LABS: Basophils # (auto) 0 10 ^3/uL (0-0.2); Hemoglobin 9.9 g/dL (12.2-16.2); Monocytes # (auto) 0.4 10 ^3/uL (0-1.3)
[2021-11-30 04:44] LABS: Basophils % (auto) 0.2 % (0.0-2.0); Eosinophils # (auto) 0.1 10 ^3/uL (0-0.8); Eosinophils % (auto) 1.1 % (0.0-7.0); Hematocrit 30.6 % (36.0-46.0); Lymphocytes # (auto) 0.6 10 ^3/uL (0.4-5.4); Lymphocytes % (auto) 11.6 % (10.0-50.0); Mean Corpuscular Hemoglobin 25.6 pg (28.0-32.0); Mean Corpuscular Hgb Conc. 32.2 g/dL (32.0-36.0); Mean Corpuscular Volume 79.4 fL (80.0-100.0); Monocytes % (auto) 8.1 % (0.0-12.0); Neutrophils # (auto) 4.1 10 ^3/uL (1.6-8.6); Nucleated Red Blood Cells % 0.1 %; Red Blood Cells 3.85 10^6/uL (4.0-5.20); White Blood Cell 5.2 10^3/uL (4.4-10.8)
[2021-11-30 04:50] LABS: Red Cell Distribution Width 20.7 % (11.8-14.3)
[2021-11-30 04:58] LABS: BUN/Creatinine Ratio 48.6; Calcium 8.7 mg/dL (8.5-10.1); Potassium 4.2 mmol/L (3.5-5.1)
[2021-11-30] MEDS: NOREPINEPHRINE 8 MG/250ML KIT 250 ML IV SCH (09:15)
[2021-11-30] MEDS: ASPirin-EC 81 mg tab PO SCH (10:00)
[2021-11-30] MEDS: PANTOPRAZOLE 40 MG/10 ML VIAL INJ IV SCH (10:13)
[2021-11-30] MEDS: DexAMETHasone SOD PHOS 10MG/1ML VIAL INJ IV SCH (10:14)
[2021-11-30] MEDS ORDERED: Jevity 1.2 Cal/Fiber 1 Liter GT SCH (15:30)
[2021-11-30] MEDS: ATORVASTATIN 20 MG TAB PO SCH (21:50)
[2021-12-01] VITALS (100 sets, daily range): BP systolic 90–146; BP diastolic 58–89
[2021-12-01 05:15] LABS: Basophils # (auto) 0 10 ^3/uL (0-0.2); Basophils % (auto) 0.3 % (0.0-2.0); Eosinophils # (auto) 0 10 ^3/uL (0-0.8); Eosinophils % (auto) 0.7 % (0.0-7.0); Hematocrit 28.2 % (36.0-46.0); Hemoglobin 9.5 g/dL (12.2-16.2); Lymphocytes # (auto) 0.6 10 ^3/uL (0.4-5.4); Lymphocytes % (auto) 11.8 % (10.0-50.0); Mean Corpuscular Hemoglobin 29.8 pg (28.0-32.0); Mean Corpuscular Hgb Conc. 33.6 g/dL (32.0-36.0); Mean Corpuscular Volume 88.7 fL (80.0-100.0); Monocytes # (auto) 0.3 10 ^3/uL (0-1.3); Monocytes % (auto) 6.9 % (0.0-12.0); Neutrophils # (auto) 4.1 10 ^3/uL (1.6-8.6); Neutrophils % (auto) 80.3 % (37.0-80.0); Nucleated Red Blood Cells % 0.1 %; Red Blood Cells 3.18 10^6/uL (4.0-5.20); White Blood Cell 5.1 10^3/uL (4.4-10.8)
[2021-12-01 05:18] LABS: Red Cell Distribution Width 21.8 % (11.8-14.3)
[2021-12-01] MEDS: PROPOFOL 100 ML IV SCH ×2 (05:40→14:46)
[2021-12-01 06:00] LABS: BUN/Creatinine Ratio 62.2; Calcium 8.5 mg/dL (8.5-10.1)
[2021-12-01] MEDS: NOREPINEPHRINE 8 MG/250ML KIT 250 ML IV SCH (09:15)
[2021-12-01] MEDS: ASPirin-EC 81 mg tab PO SCH (09:38)
[2021-12-01] MEDS: DexAMETHasone SOD PHOS 10MG/1ML VIAL INJ IV SCH (09:38)
[2021-12-01] MEDS: PANTOPRAZOLE 40 MG/10 ML VIAL INJ IV SCH (09:38)
[2021-12-01] MEDS: SODIUM CHLORIDE 0.9% 1,000 ML IV SCH (14:46)
[2021-12-01] MEDS: ATORVASTATIN 20 MG TAB PO SCH (22:59)
[2021-12-02] VITALS (94 sets, daily range): BP systolic 93–165; BP diastolic 60–101
[2021-12-02] MEDS: SODIUM CHLORIDE 0.9% 1,000 ML IV SCH ×2 (00:59→14:10)
[2021-12-02 05:01] LABS: Hematocrit 32.1 % (36.0-46.0); Hemoglobin 10.4 g/dL (12.2-16.2); Mean Corpuscular Hemoglobin 27.7 pg (28.0-32.0); Mean Corpuscular Hgb Conc. 32.3 g/dL (32.0-36.0); Mean Corpuscular Volume 85.6 fL (80.0-100.0); Red Blood Cells 3.75 10^6/uL (4.0-5.20); White Blood Cell 7.5 10^3/uL (4.4-10.8)
[2021-12-02 05:07] LABS: BUN/Creatinine Ratio 54.5; Calcium 8.5 mg/dL (8.5-10.1)
[2021-12-02 05:10] LABS: Red Cell Distribution Width 22.1 % (11.8-14.3)
[2021-12-02 05:11] LABS: Basophils % (manual) 0 (0.0-2.0); Blast Cells 0; Metamyelocytes % 0; Myelocytes % 0; Promyelocytes % 0; Reactive Lymphocytes 0
[2021-12-02 05:54] LABS: Band Neutrophils % (manual) 6; Eosinophils % (manual) 1 (0-7); Lymphocytes % (manual) 11 (10.0-50.0); Monocytes % (manual) 7 (0-12)
[2021-12-02] MEDS: PROPOFOL 100 ML IV SCH ×2 (06:12→22:30)
[2021-12-02] MEDS: NOREPINEPHRINE 8 MG/250ML KIT 250 ML IV SCH (09:15)
[2021-12-02] MEDS: DexAMETHasone SOD PHOS 10MG/1ML VIAL INJ IV SCH (09:49)
[2021-12-02] MEDS: PANTOPRAZOLE 40 MG/10 ML VIAL INJ IV SCH (09:49)
[2021-12-02] MEDS: ASPirin-EC 81 mg tab PO SCH (09:49)
[2021-12-02] MEDS: ATORVASTATIN 20 MG TAB PO SCH (22:30)
[2021-12-03] VITALS (99 sets, daily range): BP systolic 87–152; BP diastolic 43–86
[2021-12-03] MEDS: SODIUM CHLORIDE 0.9% 1,000 ML IV SCH ×2 (03:30→16:50)
[2021-12-03] MEDS: NOREPINEPHRINE 8 MG/250ML KIT 250 ML IV SCH (09:15)
[2021-12-03] MEDS: DexAMETHasone SOD PHOS 10MG/1ML VIAL INJ IV SCH (10:04)
[2021-12-03] MEDS: PANTOPRAZOLE 40 MG/10 ML VIAL INJ IV SCH (10:04)
[2021-12-03] MEDS: ASPirin-EC 81 mg tab PO SCH (10:04)
[2021-12-03 16:18] LABS: Basophils # (auto) 0 10 ^3/uL (0-0.2); Basophils % (auto) 0.1 % (0.0-2.0); Eosinophils # (auto) 0 10 ^3/uL (0-0.8); Eosinophils % (auto) 0.5 % (0.0-7.0); Hematocrit 31.1 % (36.0-46.0); Hemoglobin 10.1 g/dL (12.2-16.2); Lymphocytes # (auto) 0.3 10 ^3/uL (0.4-5.4); Lymphocytes % (auto) 4.2 % (10.0-50.0); Mean Corpuscular Hemoglobin 25.9 pg (28.0-32.0); Mean Corpuscular Hgb Conc. 32.4 g/dL (32.0-36.0); Mean Corpuscular Volume 79.8 fL (80.0-100.0); Monocytes # (auto) 0.2 10 ^3/uL (0-1.3); Monocytes % (auto) 3.2 % (0.0-12.0); Neutrophils # (auto) 5.6 10 ^3/uL (1.6-8.6); White Blood Cell 6.1 10^3/uL (4.4-10.8)
[2021-12-03 16:20] LABS: Red Cell Distribution Width 22.2 % (11.8-14.3)
[2021-12-03 16:36] LABS: BUN/Creatinine Ratio 42.6; Calcium 8.2 mg/dL (8.5-10.1); Potassium 4.2 mmol/L (3.5-5.1)
[2021-12-03] MEDS: ATORVASTATIN 20 MG TAB PO SCH (21:59)
[2021-12-04] VITALS (80 sets, daily range): BP systolic 89–155; BP diastolic 52–96
[2021-12-04] MEDS: PROPOFOL 100 ML IV SCH ×2 (02:37→06:35)
[2021-12-04] MEDS: SODIUM CHLORIDE 0.9% 1,000 ML IV SCH ×2 (04:00→17:47)
[2021-12-04 04:33] LABS: Basophils # (auto) 0 10 ^3/uL (0-0.2); Basophils % (auto) 0.3 % (0.0-2.0); Eosinophils # (auto) 0 10 ^3/uL (0-0.8); Eosinophils % (auto) 0.4 % (0.0-7.0); Lymphocytes # (auto) 0.5 10 ^3/uL (0.4-5.4); Lymphocytes % (auto) 7.2 % (10.0-50.0); Mean Corpuscular Hemoglobin 26.7 pg (28.0-32.0); Mean Corpuscular Hgb Conc. 32.2 g/dL (32.0-36.0); Monocytes # (auto) 0.6 10 ^3/uL (0-1.3); Monocytes % (auto) 8.6 % (0.0-12.0); Neutrophils # (auto) 5.4 10 ^3/uL (1.6-8.6); Neutrophils % (auto) 83.5 % (37.0-80.0); Nucleated Red Blood Cells % 0.1 %; Red Blood Cells 3.37 10^6/uL (4.0-5.20); White Blood Cell 6.5 10^3/uL (4.4-10.8)
[2021-12-04 04:36] LABS: Red Cell Distribution Width 21.8 % (11.8-14.3)
[2021-12-04 04:51] LABS: BUN/Creatinine Ratio 65.5; Calcium 7.9 mg/dL (8.5-10.1)
[2021-12-04] MEDS: NOREPINEPHRINE 8 MG/250ML KIT 250 ML IV SCH (09:15)
[2021-12-04] MEDS: DexAMETHasone SOD PHOS 10MG/1ML VIAL INJ IV SCH (09:34)
[2021-12-04] MEDS: ASPirin-EC 81 mg tab PO SCH (09:34)
[2021-12-04] MEDS: PANTOPRAZOLE 40 MG/10 ML VIAL INJ IV SCH (09:34)
[2021-12-04] MEDS: ATORVASTATIN 20 MG TAB PO SCH (21:51)
[2021-12-05] VITALS (79 sets, daily range): BP systolic 96–150; BP diastolic 57–89
[2021-12-05 05:50] LABS: Basophils # (auto) 0 10 ^3/uL (0-0.2); Basophils % (auto) 0.7 % (0.0-2.0); Eosinophils # (auto) 0 10 ^3/uL (0-0.8); Eosinophils % (auto) 0.8 % (0.0-7.0); Hematocrit 25.8 % (36.0-46.0); Hemoglobin 8.6 g/dL (12.2-16.2); Lymphocytes # (auto) 0.7 10 ^3/uL (0.4-5.4); Mean Corpuscular Hemoglobin 27.1 pg (28.0-32.0); Mean Corpuscular Hgb Conc. 33.2 g/dL (32.0-36.0); Mean Corpuscular Volume 81.7 fL (80.0-100.0); Monocytes # (auto) 0.5 10 ^3/uL (0-1.3); Monocytes % (auto) 10.2 % (0.0-12.0); Neutrophils # (auto) 3.4 10 ^3/uL (1.6-8.6); Neutrophils % (auto) 73.3 % (37.0-80.0); Nucleated Red Blood Cells % 0.1 %; Red Blood Cells 3.16 10^6/uL (4.0-5.20); White Blood Cell 4.6 10^3/uL (4.4-10.8)
[2021-12-05 05:58] LABS: BUN/Creatinine Ratio 52.9; Potassium 3.8 mmol/L (3.5-5.1)
[2021-12-05 06:08] LABS: Red Cell Distribution Width 22.3 % (11.8-14.3)
[2021-12-05] MEDS: NOREPINEPHRINE 8 MG/250ML KIT 250 ML IV SCH (09:15)
[2021-12-05] MEDS: PANTOPRAZOLE 40 MG/10 ML VIAL INJ IV SCH (12:54)
[2021-12-05] MEDS: ASPirin-EC 81 mg tab PO SCH (12:55)
[2021-12-05] MEDS: D5W 5% 1,000 ML IV SCH (14:15)
[2021-12-05] MEDS: PROPOFOL 100 ML IV SCH (20:56)
[2021-12-05] MEDS: ATORVASTATIN 20 MG TAB PO SCH (21:50)
[2021-12-06] VITALS (82 sets, daily range): BP systolic 94–149; BP diastolic 45–86
[2021-12-06] MEDS: D5W 5% 1,000 ML IV SCH ×3 (00:15→20:30)
[2021-12-06] MEDS: PROPOFOL 100 ML IV SCH ×2 (05:58→20:29)
[2021-12-06 06:00] LABS: Calcium 8.1 mg/dL (8.5-10.1); Potassium 3.8 mmol/L (3.5-5.1)
[2021-12-06 06:02] LABS: BUN/Creatinine Ratio 41.5
[2021-12-06 07:14] LABS: Basophils # (auto) 0 10 ^3/uL (0-0.2); Basophils % (auto) 0.7 % (0.0-2.0); Eosinophils # (auto) 0 10 ^3/uL (0-0.8); White Blood Cell 5.3 10^3/uL (4.4-10.8)
[2021-12-06 07:16] LABS: Eosinophils % (auto) 0.6 % (0.0-7.0); Hematocrit 26.6 % (36.0-46.0); Hemoglobin 8.7 g/dL (12.2-16.2); Lymphocytes # (auto) 0.6 10 ^3/uL (0.4-5.4); Lymphocytes % (auto) 11.4 % (10.0-50.0); Mean Corpuscular Hemoglobin 27.3 pg (28.0-32.0); Mean Corpuscular Hgb Conc. 32.6 g/dL (32.0-36.0); Mean Corpuscular Volume 83.8 fL (80.0-100.0); Monocytes # (auto) 0.6 10 ^3/uL (0-1.3); Monocytes % (auto) 10.5 % (0.0-12.0); Neutrophils % (auto) 76.8 % (37.0-80.0); Nucleated Red Blood Cells % 0.1 %; Red Blood Cells 3.17 10^6/uL (4.0-5.20)
[2021-12-06 07:27] LABS: Red Cell Distribution Width 23.1 % (11.8-14.3)
[2021-12-06] MEDS: NOREPINEPHRINE 8 MG/250ML KIT 250 ML IV SCH (09:59)
[2021-12-06] MEDS: ASPirin-EC 81 mg tab PO SCH (09:59)
[2021-12-06] MEDS: PANTOPRAZOLE 40 MG/10 ML VIAL INJ IV SCH (09:59)
[2021-12-06 11:16] LABS: Hematocrit 22.9 % (36.0-46.0); Hemoglobin 7.7 g/dL (12.2-16.2)
[2021-12-06] MEDS: ATORVASTATIN 20 MG TAB PO SCH (22:00)
[2021-12-07] VITALS (82 sets, daily range): BP systolic 96–150; BP diastolic 56–94
[2021-12-07] MEDS: D5W 5% 1,000 ML IV SCH ×2 (04:25→23:59)
[2021-12-07] MEDS: PROPOFOL 100 ML IV SCH ×2 (04:26→06:57)
[2021-12-07] MEDS: NOREPINEPHRINE 8 MG/250ML KIT 250 ML IV SCH (09:15)
[2021-12-07] MEDS: ASPirin-EC 81 mg tab PO SCH (10:00)
[2021-12-07] MEDS: PANTOPRAZOLE 40 MG/10 ML VIAL INJ IV SCH (10:10)
[2021-12-07 21:58] LABS: Basophils # (auto) 0 10 ^3/uL (0-0.2); Lymphocytes # (auto) 0.5 10 ^3/uL (0.4-5.4); Nucleated Red Blood Cells % 0.1 %; White Blood Cell 5.4 10^3/uL (4.4-10.8)
[2021-12-07 22:00] LABS: Basophils % (auto) 0.9 % (0.0-2.0); Eosinophils # (auto) 0.1 10 ^3/uL (0-0.8); Hematocrit 19.9 % (36.0-46.0); Lymphocytes % (auto) 8.7 % (10.0-50.0); Mean Corpuscular Hemoglobin 27.7 pg (28.0-32.0); Mean Corpuscular Hgb Conc. 33.7 g/dL (32.0-36.0); Mean Corpuscular Volume 82.3 fL (80.0-100.0); Monocytes # (auto) 0.5 10 ^3/uL (0-1.3); Monocytes % (auto) 9.1 % (0.0-12.0); Neutrophils # (auto) 4.4 10 ^3/uL (1.6-8.6); Neutrophils % (auto) 80.3 % (37.0-80.0); Red Blood Cells 2.42 10^6/uL (4.0-5.20)
[2021-12-07 22:01] LABS: Red Cell Distribution Width 23.3 % (11.8-14.3)
[2021-12-07 22:03] LABS: Hemoglobin 6.7 g/dL (12.2-16.2)
[2021-12-07 22:10] LABS: BUN/Creatinine Ratio 34.5; Potassium 3.7 mmol/L (3.5-5.1)
[2021-12-07] MEDS: ATORVASTATIN 20 MG TAB PO SCH (23:59)
[2021-12-08] VITALS (83 sets, daily range): BP systolic 93–176; BP diastolic 55–96
[2021-12-08] MEDS: PROPOFOL 100 ML IV SCH (00:01)
[2021-12-08] MEDS: D5W 5% 1,000 ML IV SCH ×3 (02:15→22:15)
[2021-12-08 06:56] LABS: Basophils # (auto) 0.1 10 ^3/uL (0-0.2); Basophils % (auto) 1.3 % (0.0-2.0); Eosinophils # (auto) 0 10 ^3/uL (0-0.8); Eosinophils % (auto) 0.4 % (0.0-7.0); Hematocrit 26.1 % (36.0-46.0); Hemoglobin 8.8 g/dL (12.2-16.2); Lymphocytes # (auto) 0.5 10 ^3/uL (0.4-5.4); Lymphocytes % (auto) 8.5 % (10.0-50.0); Mean Corpuscular Hemoglobin 28.3 pg (28.0-32.0); Mean Corpuscular Hgb Conc. 33.9 g/dL (32.0-36.0); Mean Corpuscular Volume 83.5 fL (80.0-100.0); Monocytes # (auto) 0.6 10 ^3/uL (0-1.3); Monocytes % (auto) 9.9 % (0.0-12.0); Neutrophils # (auto) 4.5 10 ^3/uL (1.6-8.6); Neutrophils % (auto) 79.9 % (37.0-80.0); Nucleated Red Blood Cells % 0.1 %; Red Blood Cells 3.12 10^6/uL (4.0-5.20); Red Cell Distribution Width 20.8 % (11.8-14.3); White Blood Cell 5.7 10^3/uL (4.4-10.8)
[2021-12-08 07:01] LABS: BUN/Creatinine Ratio 32.3; Potassium 3.9 mmol/L (3.5-5.1)
[2021-12-08] MEDS: NOREPINEPHRINE 8 MG/250ML KIT 250 ML IV SCH (09:15)
[2021-12-08] MEDS: PANTOPRAZOLE 40 MG/10 ML VIAL INJ IV SCH ×2 (09:40→23:51)
[2021-12-08] MEDS: ASPirin-EC 81 mg tab PO SCH (09:41)
[2021-12-08] MEDS: ATORVASTATIN 20 MG TAB PO SCH (23:50)
[2021-12-09] VITALS (48 sets, daily range): BP systolic 108–162; BP diastolic 68–92
[2021-12-09 05:36] LABS: Basophils # (auto) 0 10 ^3/uL (0-0.2); Basophils % (auto) 0.4 % (0.0-2.0); Eosinophils # (auto) 0 10 ^3/uL (0-0.8); Eosinophils % (auto) 0.5 % (0.0-7.0); Hematocrit 23.5 % (36.0-46.0); Hemoglobin 8.3 g/dL (12.2-16.2); Lymphocytes # (auto) 0.4 10 ^3/uL (0.4-5.4); Lymphocytes % (auto) 6.2 % (10.0-50.0); Mean Corpuscular Hemoglobin 29.9 pg (28.0-32.0); Mean Corpuscular Hgb Conc. 35.3 g/dL (32.0-36.0); Mean Corpuscular Volume 84.7 fL (80.0-100.0); Monocytes # (auto) 0.6 10 ^3/uL (0-1.3); Monocytes % (auto) 9.5 % (0.0-12.0); Neutrophils # (auto) 5.1 10 ^3/uL (1.6-8.6); Neutrophils % (auto) 83.4 % (37.0-80.0); Nucleated Red Blood Cells % 0.1 %; Red Blood Cells 2.77 10^6/uL (4.0-5.20); White Blood Cell 6.1 10^3/uL (4.4-10.8)
[2021-12-09 05:47] LABS: BUN/Creatinine Ratio 22.2; Calcium 8.5 mg/dL (8.5-10.1); Potassium 3.5 mmol/L (3.5-5.1)
[2021-12-09] MEDS: D5W 5% 1,000 ML IV SCH ×2 (08:15→16:00)
[2021-12-09] MEDS: NOREPINEPHRINE 8 MG/250ML KIT 250 ML IV SCH (09:15)
[2021-12-09] MEDS: PANTOPRAZOLE 40 MG/10 ML VIAL INJ IV SCH ×2 (10:00→22:00)
[2021-12-09] MEDS: ASPirin-EC 81 mg tab PO SCH (10:00)
[2021-12-09] MEDS: PROPOFOL 100 ML IV SCH (12:15)
[2021-12-09] MEDS: ATORVASTATIN 20 MG TAB PO SCH (22:00)
[2021-12-10] VITALS (46 sets, daily range): BP systolic 84–152; BP diastolic 52–101
[2021-12-10] MEDS: D5W 5% 1,000 ML IV SCH ×2 (04:15→13:30)
[2021-12-10 07:38] LABS: Potassium 3.7 mmol/L (3.5-5.1)
[2021-12-10 07:47] LABS: Basophils # (auto) 0 10 ^3/uL (0-0.2); Basophils % (auto) 0.2 % (0.0-2.0); Eosinophils # (auto) 0 10 ^3/uL (0-0.8); Eosinophils % (auto) 0.1 % (0.0-7.0); Hematocrit 26.3 % (36.0-46.0); Hemoglobin 8.9 g/dL (12.2-16.2); Lymphocytes # (auto) 0.4 10 ^3/uL (0.4-5.4); Lymphocytes % (auto) 5.2 % (10.0-50.0); Mean Corpuscular Hemoglobin 29.1 pg (28.0-32.0); Mean Corpuscular Hgb Conc. 33.8 g/dL (32.0-36.0); Mean Corpuscular Volume 86.1 fL (80.0-100.0); Monocytes # (auto) 0.5 10 ^3/uL (0-1.3); Monocytes % (auto) 7.6 % (0.0-12.0); Neutrophils # (auto) 6.2 10 ^3/uL (1.6-8.6); Neutrophils % (auto) 86.9 % (37.0-80.0); Red Blood Cells 3.05 10^6/uL (4.0-5.20); Red Cell Distribution Width 21.5 % (11.8-14.3); White Blood Cell 7.1 10^3/uL (4.4-10.8)
[2021-12-10 07:59] LABS: BUN/Creatinine Ratio 22.2; Calcium 8.6 mg/dL (8.5-10.1)
[2021-12-10] MEDS: NOREPINEPHRINE 8 MG/250ML KIT 250 ML IV SCH (09:15)
[2021-12-10] MEDS: ASPirin-EC 81 mg tab PO SCH (09:46)
[2021-12-10] MEDS: PROPOFOL 100 ML IV SCH (09:46)
[2021-12-10] MEDS: PANTOPRAZOLE 40 MG/10 ML VIAL INJ IV SCH ×2 (09:46→22:00)
[2021-12-10] MEDS: METOPROLOL TARTRATE 1MG/1ML-5ML VIAL IV PRN (10:40)
[2021-12-10] MEDS: ACETAMINOPHEN 650 mg PER 20.3 mL UD GT PRN (11:00)
[2021-12-10] MEDS ORDERED: HYDROcodone-ACET 5/325MG TAB PO PRN (16:30)
[2021-12-10] MEDS: ATORVASTATIN 20 MG TAB PO SCH (22:00)
[2021-12-11] VITALS (35 sets, daily range): BP systolic 97–141; BP diastolic 56–97
[2021-12-11 05:45] LABS: Basophils # (auto) 0 10 ^3/uL (0-0.2); Hematocrit 25.1 % (36.0-46.0); Hemoglobin 8.3 g/dL (12.2-16.2); Lymphocytes # (auto) 0.5 10 ^3/uL (0.4-5.4); Monocytes # (auto) 0.6 10 ^3/uL (0-1.3)
[2021-12-11 05:47] LABS: Basophils % (auto) 0.1 % (0.0-2.0); Eosinophils # (auto) 0.1 10 ^3/uL (0-0.8); Eosinophils % (auto) 0.7 % (0.0-7.0); Lymphocytes % (auto) 5.6 % (10.0-50.0); Mean Corpuscular Hemoglobin 26.5 pg (28.0-32.0); Mean Corpuscular Hgb Conc. 33.1 g/dL (32.0-36.0); Mean Corpuscular Volume 79.9 fL (80.0-100.0); Monocytes % (auto) 6.9 % (0.0-12.0); Neutrophils % (auto) 86.7 % (37.0-80.0); Red Blood Cells 3.14 10^6/uL (4.0-5.20); Red Cell Distribution Width 21.5 % (11.8-14.3); White Blood Cell 8.1 10^3/uL (4.4-10.8)
[2021-12-11 06:02] LABS: BUN/Creatinine Ratio 16.7; Calcium 7.9 mg/dL (8.5-10.1); Potassium 3.2 mmol/L (3.5-5.1)
[2021-12-11] MEDS: NOREPINEPHRINE 8 MG/250ML KIT 250 ML IV SCH (09:15)
[2021-12-11] MEDS: D5W 5% 1,000 ML IV SCH ×3 (09:22→21:01)
[2021-12-11] MEDS: ASPirin-EC 81 mg tab PO SCH (09:23)
[2021-12-11] MEDS: PANTOPRAZOLE 40 MG/10 ML VIAL INJ IV SCH ×2 (09:23→22:00)
[2021-12-11] MEDS: ACETAMINOPHEN 650 mg PER 20.3 mL UD GT PRN (09:23)
[2021-12-11] MEDS ORDERED: POTASSIUM CHL 10MEQ/50ML 50 ML IV ONE (10:41)
[2021-12-11] MEDS: POTASSIUM CHL 10MEQ/50ML 50 ML IV SCH ×4 (11:07→14:04)
[2021-12-11] MEDS: PROPOFOL 100 ML IV SCH (12:15)
[2021-12-11] MEDS: ATORVASTATIN 20 MG TAB PO SCH (21:01)
[2021-12-12] VITALS (28 sets, daily range): BP systolic 92–166; BP diastolic 51–101
[2021-12-12] MEDS: METOPROLOL TARTRATE 1MG/1ML-5ML VIAL IV PRN (03:17)
[2021-12-12 04:15] LABS: Hematocrit 23.7 % (36.0-46.0); Hemoglobin 8.5 g/dL (12.2-16.2); Mean Corpuscular Hemoglobin 32.3 pg (28.0-32.0); Mean Corpuscular Hgb Conc. 35.8 g/dL (32.0-36.0); Mean Corpuscular Volume 90.2 fL (80.0-100.0); Red Blood Cells 2.62 10^6/uL (4.0-5.20)
[2021-12-12 04:32] LABS: BUN/Creatinine Ratio 15.1; Calcium 8.4 mg/dL (8.5-10.1); Potassium 4.5 mmol/L (3.5-5.1)
[2021-12-12 04:54] LABS: Basophils % (manual) 0 (0.0-2.0); Blast Cells 0; Eosinophils % (manual) 0 (0-7); Metamyelocytes % 0; Myelocytes % 0; Promyelocytes % 0; Reactive Lymphocytes 0
[2021-12-12] MEDS: D5W 5% 1,000 ML IV SCH ×3 (06:54→22:40)
[2021-12-12 08:25] LABS: Band Neutrophils % (manual) 15; Lymphocytes % (manual) 9 (10.0-50.0); Monocytes % (manual) 4 (0-12)
[2021-12-12] MEDS: NOREPINEPHRINE 8 MG/250ML KIT 250 ML IV SCH (09:15)
[2021-12-12] MEDS: ENOXAPARIN SOD 40 MG/0.4 ML SYRINGE SC SCH (09:27)
[2021-12-12] MEDS: PANTOPRAZOLE 40 MG/10 ML VIAL INJ IV SCH ×2 (09:27→22:39)
[2021-12-12] MEDS: ASPirin-EC 81 mg tab PO SCH (09:27)
[2021-12-12] MEDS: PROPOFOL 100 ML IV SCH (12:15)
[2021-12-12] MEDS: ACETYLCYSTEINE 20%(200MG/ML) SOL 4ML NEB SCH ×2 (16:10→22:28)
[2021-12-12] MEDS: ALBUTEROL SULF 2.5 MG/0.5ML(0.5%) NEB SOLN NEB SCH ×2 (16:11→22:28)
[2021-12-12] MEDS: ATORVASTATIN 20 MG TAB PO SCH (21:12)
[2021-12-13] VITALS (20 sets, daily range): BP systolic 104–148; BP diastolic 58–84
[2021-12-13 06:08] LABS: BUN/Creatinine Ratio 42.5; Calcium 7.9 mg/dL (8.5-10.1); Potassium 3.7 mmol/L (3.5-5.1)
[2021-12-13 06:54] LABS: Basophils # (auto) 0 10 ^3/uL (0-0.2); Basophils % (auto) 0.7 % (0.0-2.0); Eosinophils # (auto) 0.1 10 ^3/uL (0-0.8); Eosinophils % (auto) 0.8 % (0.0-7.0); Hematocrit 18.6 % (36.0-46.0); Lymphocytes # (auto) 0.8 10 ^3/uL (0.4-5.4); Lymphocytes % (auto) 13.7 % (10.0-50.0); Mean Corpuscular Hemoglobin 25.2 pg (28.0-32.0); Mean Corpuscular Hgb Conc. 32.1 g/dL (32.0-36.0); Mean Corpuscular Volume 78.4 fL (80.0-100.0); Monocytes # (auto) 0.6 10 ^3/uL (0-1.3); Neutrophils # (auto) 4.6 10 ^3/uL (1.6-8.6); Neutrophils % (auto) 74.8 % (37.0-80.0); Nucleated Red Blood Cells % 0.1 %; Red Blood Cells 2.38 10^6/uL (4.0-5.20); White Blood Cell 6.2 10^3/uL (4.4-10.8)
[2021-12-13] MEDS: ALBUTEROL SULF 2.5 MG/0.5ML(0.5%) NEB SOLN NEB SCH ×3 (07:26→19:37)
[2021-12-13] MEDS: ACETYLCYSTEINE 20%(200MG/ML) SOL 4ML NEB SCH ×3 (07:26→19:38)
[2021-12-13] MEDS: NOREPINEPHRINE 8 MG/250ML KIT 250 ML IV SCH (07:30)
[2021-12-13] MEDS: METOPROLOL TARTRATE 1MG/1ML-5ML VIAL IV PRN (07:59)
[2021-12-13 08:19] LABS: Red Cell Distribution Width 21.6 % (11.8-14.3)
[2021-12-13] MEDS: ENOXAPARIN SOD 40 MG/0.4 ML SYRINGE SC SCH (09:28)
[2021-12-13] MEDS: PANTOPRAZOLE 40 MG/10 ML VIAL INJ IV SCH ×2 (09:28→21:18)
[2021-12-13] MEDS: ASPirin-EC 81 mg tab PO SCH (09:31)
[2021-12-13] MEDS: PROPOFOL 100 ML IV SCH (11:27)
[2021-12-13] MEDS: D5W 5% 1,000 ML IV SCH (11:27)
[2021-12-13] MEDS ORDERED: ACETAMINOPHEN 650 MG RECT SUPP PR PRN (16:15)
[2021-12-13] MEDS ORDERED: CLINIMIX PER PHARMACY 0 ML IV SCH (17:00)
[2021-12-13] MEDS: ATORVASTATIN 20 MG TAB PO SCH (21:12)
[2021-12-13] MEDS: AMINO ACID INFUSION IN D10W 1,000 ML IV SCH (21:18)
[2021-12-13 22:10] LABS: Basophils # (auto) 0 10 ^3/uL (0-0.2); Basophils % (auto) 0.4 % (0.0-2.0); Eosinophils # (auto) 0 10 ^3/uL (0-0.8); Eosinophils % (auto) 0.3 % (0.0-7.0); Hematocrit 26.8 % (36.0-46.0); Hemoglobin 9.6 g/dL (12.2-16.2); Lymphocytes % (auto) 12.9 % (10.0-50.0); Mean Corpuscular Hemoglobin 32.6 pg (28.0-32.0); Mean Corpuscular Hgb Conc. 35.7 g/dL (32.0-36.0); Mean Corpuscular Volume 91.2 fL (80.0-100.0); Monocytes # (auto) 0.5 10 ^3/uL (0-1.3); Neutrophils % (auto) 79.4 % (37.0-80.0); Nucleated Red Blood Cells % 0.1 %; Red Blood Cells 2.94 10^6/uL (4.0-5.20); Red Cell Distribution Width 22.4 % (11.8-14.3); White Blood Cell 7.6 10^3/uL (4.4-10.8)
[2021-12-13] MEDS: InsuLIN REG 1unit/0.01ml Soln (100units/ml) SC SCH (23:19)
[2021-12-13] MEDS: ACCU-CHEK COMFORT CURVE STRIP VI SCH (23:19)
[2021-12-14] MEDS ORDERED: DEXTROSE (50%) 50ML SYRG IV SCH
[2021-12-14 05:00] VITALS: BP 108/62
[2021-12-14] MEDS: InsuLIN REG 1unit/0.01ml Soln (100units/ml) SC SCH ×4 (06:00→23:09)
[2021-12-14] MEDS: ACCU-CHEK COMFORT CURVE STRIP VI SCH ×4 (06:07→23:02)
[2021-12-14] MEDS: ALBUTEROL SULF 2.5 MG/0.5ML(0.5%) NEB SOLN NEB SCH ×3 (06:12→19:14)
[2021-12-14] MEDS: ACETYLCYSTEINE 20%(200MG/ML) SOL 4ML NEB SCH ×2 (06:13→14:05)
[2021-12-14 08:30] VITALS: BP 118/64
[2021-12-14] MEDS: PANTOPRAZOLE 40 MG/10 ML VIAL INJ IV SCH ×2 (08:51→21:14)
[2021-12-14] MEDS: ASPirin-EC 81 mg tab PO SCH (08:51)
[2021-12-14] MEDS: ENOXAPARIN SOD 40 MG/0.4 ML SYRINGE SC SCH (08:51)
[2021-12-14 11:08] LABS: Albumin 1.4 g/dL (3.4-5.0); Calcium 7.7 mg/dL (8.5-10.1); Potassium 3.3 mmol/L (3.5-5.1)
[2021-12-14 11:14] LABS: BUN/Creatinine Ratio 62.5; Bilirubin, Total 0.8 mg/dL (0.2-1.0); Magnesium 1.8 mg/dL (1.6-2.6); Phosphorus 1.1 mg/dL (2.5-4.90); Pre Albumin 5.9 mg/dL (20.0-40.0); Total Protein 4.2 g/dL (6.4-8.2)
[2021-12-14 11:25] LABS: Basophils # (auto) 0 10 ^3/uL (0-0.2); Basophils % (auto) 0.2 % (0.0-2.0); Eosinophils # (auto) 0.1 10 ^3/uL (0-0.8); Hematocrit 38.3 % (36.0-46.0); Hemoglobin 12.9 g/dL (12.2-16.2); Lymphocytes # (auto) 0.6 10 ^3/uL (0.4-5.4); Mean Corpuscular Hemoglobin 28.2 pg (28.0-32.0); Mean Corpuscular Hgb Conc. 33.6 g/dL (32.0-36.0); Monocytes # (auto) 0.3 10 ^3/uL (0-1.3); Monocytes % (auto) 6.3 % (0.0-12.0); Neutrophils # (auto) 3.8 10 ^3/uL (1.6-8.6); Neutrophils % (auto) 79.5 % (37.0-80.0); Nucleated Red Blood Cells % 0.2 %; Red Blood Cells 4.55 10^6/uL (4.0-5.20); White Blood Cell 4.8 10^3/uL (4.4-10.8)
[2021-12-14 11:26] LABS: Red Cell Distribution Width 21.9 % (11.8-14.3)
[2021-12-14 13:02] VITALS: BP 123/81
[2021-12-14] MEDS ORDERED: POTASSIUM CHL 10MEQ/50ML 50 ML IV ONE (13:45)
[2021-12-14] MEDS ORDERED: dilTIAZem 25 MG/5 ML VIAL IV ONE (14:15)
[2021-12-14] MEDS ORDERED: SODIUM CHLORIDE 0.9% 500 ML IV ONE (15:15)
[2021-12-14] MEDS ORDERED: DIGOXIN (250MCG/ML) 2 ML AMPULE IV ONE (15:45)
[2021-12-14] MEDS ORDERED: dilTIAZem 25 MG/5 ML VIAL IV PRN (15:45)
[2021-12-14 16:00] VITALS: BP 108/63
[2021-12-14] MEDS ORDERED: FLUCONAZOLE 200MG/100ML 100 ML IV ONE (16:45)
[2021-12-14] MEDS ORDERED: SODIUM PHOSPH 24MEQ(18MMOL) IN NS 100 ML IV ONE (17:00)
[2021-12-14] MEDS ORDERED: ACETAMINOPHEN IV 100 ML IV ONE ×3 (17:00→17:30)
[2021-12-14] MEDS: METOPROLOL TARTRATE 1MG/1ML-5ML VIAL IV SCH ×2 (18:12→23:18)
[2021-12-14] MEDS: AMINO ACID INFUSION IN D10W 1,000 ML IV SCH (20:05)
[2021-12-14] MEDS: ATORVASTATIN 20 MG TAB PO SCH (21:14)
[2021-12-14] MEDS: PIPERACILLIN-TAZOB 3.375GM 100 ML IV SCH (21:14)
[2021-12-14 21:59] VITALS: BP 107/59
[2021-12-15] VITALS (7 sets, daily range): BP systolic 113–143; BP diastolic 54–67
[2021-12-15] MEDS: PIPERACILLIN-TAZOB 3.375GM 100 ML IV SCH ×3 (05:30→20:17)
[2021-12-15] MEDS: METOPROLOL TARTRATE 1MG/1ML-5ML VIAL IV SCH ×4 (05:30→23:08)
[2021-12-15] MEDS: ACCU-CHEK COMFORT CURVE STRIP VI SCH ×4 (05:30→23:03)
[2021-12-15] MEDS: InsuLIN REG 1unit/0.01ml Soln (100units/ml) SC SCH ×4 (05:31→23:04)
[2021-12-15 07:33] LABS: Potassium 3.6 mmol/L (3.5-5.1)
[2021-12-15 07:50] LABS: Albumin 1.4 g/dL (3.4-5.0); BUN/Creatinine Ratio 102.8; Bilirubin, Total 0.5 mg/dL (0.2-1.0); Calcium 7.3 mg/dL (8.5-10.1); Magnesium 1.9 mg/dL (1.6-2.6); Total Protein 3.8 g/dL (6.4-8.2)
[2021-12-15] MEDS: PANTOPRAZOLE 40 MG/10 ML VIAL INJ IV SCH ×2 (09:17→21:45)
[2021-12-15] MEDS: FLUCONAZOLE 200MG/100ML 100 ML IV SCH (09:17)
[2021-12-15] MEDS: ASPirin-EC 81 mg tab PO SCH (09:17)
[2021-12-15] MEDS ORDERED: SODIUM PHOSP 20MEQ(15MMOL) IN NS 100 ML IV ONE (12:00)
[2021-12-15] MEDS: ALBUTEROL SULF 2.5 MG/0.5ML(0.5%) NEB SOLN NEB SCH (14:47)
[2021-12-15] MEDS: AMINO ACID INFUSION IN D10W 1,000 ML IV SCH (20:26)
[2021-12-15] MEDS: ATORVASTATIN 20 MG TAB PO SCH (21:45)
[2021-12-16] MEDS: PIPERACILLIN-TAZOB 3.375GM 100 ML IV SCH ×4 (02:10→19:44)
[2021-12-16 05:00] VITALS: BP 147/69
[2021-12-16] MEDS: ACCU-CHEK COMFORT CURVE STRIP VI SCH ×2 (05:37→12:27)
[2021-12-16] MEDS: METOPROLOL TARTRATE 1MG/1ML-5ML VIAL IV SCH ×3 (05:40→18:27)
[2021-12-16] MEDS: InsuLIN REG 1unit/0.01ml Soln (100units/ml) SC SCH ×2 (05:41→12:00)
[2021-12-16 09:00] VITALS: BP 146/65
[2021-12-16 10:21] LABS: White Blood Cell 5.8 10^3/uL (4.4-10.8)
[2021-12-16] MEDS: FLUCONAZOLE 200MG/100ML 100 ML IV SCH (10:34)
[2021-12-16] MEDS: ASPirin-EC 81 mg tab PO SCH (10:34)
[2021-12-16] MEDS: PANTOPRAZOLE 40 MG/10 ML VIAL INJ IV SCH ×2 (10:34→21:12)
[2021-12-16 10:42] LABS: Albumin 1.4 g/dL (3.4-5.0); Calcium 7.7 mg/dL (8.5-10.1); Magnesium 1.8 mg/dL (1.6-2.6)
[2021-12-16 10:47] LABS: BUN/Creatinine Ratio 63.2; Bilirubin, Total 0.5 mg/dL (0.2-1.0); Phosphorus 1.8 mg/dL (2.5-4.90); Total Protein 4.6 g/dL (6.4-8.2)
[2021-12-16 11:27] LABS: Hematocrit 20.2 % (36.0-46.0); Mean Corpuscular Hemoglobin 31.1 pg (28.0-32.0); Mean Corpuscular Volume 91.2 fL (80.0-100.0); Red Blood Cells 2.22 10^6/uL (4.0-5.20); Red Cell Distribution Width 23.2 % (11.8-14.3)
[2021-12-16] MEDS ORDERED: VANCOMYCIN HCL 1000 MG VL ONE (11:28)
[2021-12-16 11:30] LABS: Basophils % (manual) 0 (0.0-2.0); Blast Cells 0; Metamyelocytes % 0; Myelocytes % 0; Potassium 2.9 mmol/L (3.5-5.1); Promyelocytes % 0; Reactive Lymphocytes 0
[2021-12-16 12:48] LABS: Band Neutrophils % (manual) 1; Eosinophils % (manual) 2 (0-7); Lymphocytes % (manual) 20 (10.0-50.0); Monocytes % (manual) 7 (0-12)
[2021-12-16 13:14] VITALS: BP 146/77
[2021-12-16] MEDS: SODIUM FERR GLUC 62.5MG/5ML 125 MG in SODIUM CHL 0.9% 100 ML IV SCH (14:53)
[2021-12-16] MEDS: POTASSIUM CHL 10MEQ/50ML 50 ML IV SCH ×4 (16:19→21:12)
[2021-12-16 17:00] VITALS: BP 138/73
[2021-12-16] MEDS ORDERED: SODIUM PHOSPHATES 40 MEQ in D5W 5% 250 ML IV ONE (18:00)
[2021-12-16] MEDS ORDERED: POTASSIUM CHL 10MEQ/50ML 50 ML IV ONE ×2 (19:54→20:54)
[2021-12-16] MEDS: ATORVASTATIN 20 MG TAB PO SCH (21:24)
[2021-12-16 22:00] VITALS: BP 143/67
[2021-12-17] MEDS: METOPROLOL TARTRATE 1MG/1ML-5ML VIAL IV SCH ×4 (00:10→17:01)
[2021-12-17 00:47] LABS: Urine Bacteria NONE SEEN /hpf (None Seen); Urine Blood TRACE /uL (Negative); Urine Hyaline Cast FEW /lpf (0 - 2); Urine Specific Gravity 1.007 (1.001-1.035); Urine WBC 17 /hpf (0 - 5); Urine WBC Clumps PRESENT /hpf (None Seen)
[2021-12-17] MEDS: PIPERACILLIN-TAZOB 3.375GM 100 ML IV SCH ×4 (01:30→20:46)
[2021-12-17 05:00] VITALS: BP 139/74
[2021-12-17 06:32] LABS: Potassium 3.7 mmol/L (3.5-5.1)
[2021-12-17 06:37] LABS: BUN/Creatinine Ratio 51.4; Calcium 7.6 mg/dL (8.5-10.1); Magnesium 1.6 mg/dL (1.6-2.6)
[2021-12-17 07:25] LABS: Hematocrit 18.6 % (36.0-46.0); Mean Corpuscular Hemoglobin 34.3 pg (28.0-32.0); Mean Corpuscular Hgb Conc. 36.4 g/dL (32.0-36.0); Mean Corpuscular Volume 94.3 fL (80.0-100.0); Red Blood Cells 1.97 10^6/uL (4.0-5.20); White Blood Cell 5.9 10^3/uL (4.4-10.8)
[2021-12-17 07:46] LABS: Red Cell Distribution Width 23.6 % (11.8-14.3)
[2021-12-17 07:47] LABS: Hemoglobin 6.7 g/dL (12.2-16.2)
[2021-12-17 07:48] LABS: Basophils % (manual) 0 (0.0-2.0); Blast Cells 0; Metamyelocytes % 0; Promyelocytes % 0; Reactive Lymphocytes 0
[2021-12-17 08:33] LABS: Band Neutrophils % (manual) 7; Eosinophils % (manual) 2 (0-7); Lymphocytes % (manual) 12 (10.0-50.0); Monocytes % (manual) 5 (0-12); Myelocytes % 2
[2021-12-17 09:00] VITALS: BP 139/78
[2021-12-17] MEDS: FLUCONAZOLE 200MG/100ML 100 ML IV SCH (10:11)
[2021-12-17] MEDS: ASPirin-EC 81 mg tab PO SCH (10:12)
[2021-12-17] MEDS: PANTOPRAZOLE 40 MG/10 ML VIAL INJ IV SCH ×2 (10:12→22:19)
[2021-12-17 12:43] VITALS: BP 149/81
[2021-12-17] MEDS: SODIUM FERR GLUC 62.5MG/5ML 125 MG in SODIUM CHL 0.9% 100 ML IV SCH (12:44)
[2021-12-17 12:45] VITALS: BP 108/83
[2021-12-17] MEDS ORDERED: ACETAMINOPHEN 500 MG TAB PO ONE (16:00)
[2021-12-17 16:37] VITALS: BP 104/68
[2021-12-17] MEDS ORDERED: FUROSEMIDE 20 MG/2 ML VIAL IV ONE (20:00)
[2021-12-17 22:00] VITALS: BP 106/59
[2021-12-17] MEDS: ATORVASTATIN 20 MG TAB PO SCH (22:00)
[2021-12-18] VITALS (8 sets, daily range): BP systolic 135–147; BP diastolic 61–86
[2021-12-18] MEDS: METOPROLOL TARTRATE 1MG/1ML-5ML VIAL IV SCH ×6 (01:16→23:42)
[2021-12-18] MEDS: PIPERACILLIN-TAZOB 3.375GM 100 ML IV SCH ×3 (03:19→13:38)
[2021-12-18 06:36] LABS: Basophils # (auto) 0 10 ^3/uL (0-0.2)
[2021-12-18 06:42] LABS: Basophils % (auto) 0.6 % (0.0-2.0); Eosinophils # (auto) 0 10 ^3/uL (0-0.8); Eosinophils % (auto) 0.9 % (0.0-7.0); Hematocrit 23.1 % (36.0-46.0); Hemoglobin 9.5 g/dL (12.2-16.2); Lymphocytes # (auto) 0.8 10 ^3/uL (0.4-5.4); Lymphocytes % (auto) 15.3 % (10.0-50.0); Mean Corpuscular Volume 102.7 fL (80.0-100.0); Monocytes # (auto) 0.7 10 ^3/uL (0-1.3); Monocytes % (auto) 12.5 % (0.0-12.0); Neutrophils # (auto) 3.7 10 ^3/uL (1.6-8.6); Neutrophils % (auto) 70.7 % (37.0-80.0); Nucleated Red Blood Cells % 0.7 %; Red Blood Cells 2.25 10^6/uL (4.0-5.20); Red Cell Distribution Width 19.9 % (11.8-14.3); White Blood Cell 5.2 10^3/uL (4.4-10.8)
[2021-12-18 07:06] LABS: Mean Corpuscular Hgb Conc. 40.9 g/dL (32.0-36.0)
[2021-12-18] MEDS: PANTOPRAZOLE 40 MG/10 ML VIAL INJ IV SCH ×2 (08:29→21:55)
[2021-12-18 17:11] LABS: INR 1.07 (0.9-1.15); Partial Thromboplastin Time 33.3 sec (23.6-33.0)
[2021-12-18] MEDS: PIPERACILLIN-TAZOB 2.25GM 50 ML IV SCH ×2 (17:29→23:42)
[2021-12-18] MEDS: LIDOCAINE VISCOUS 2% 15ML UD MT SCH (21:55)
[2021-12-18] MEDS: ATORVASTATIN 20 MG TAB PO SCH (21:56)
[2021-12-18] MEDS ORDERED: PIPERACILLIN-TAZOB 3.375GM 100 ML IV SCH (22:00)
[2021-12-19] MEDS: METOPROLOL TARTRATE 1MG/1ML-5ML VIAL IV SCH ×4 (05:42→23:13)
[2021-12-19] MEDS: PIPERACILLIN-TAZOB 2.25GM 50 ML IV SCH ×4 (05:42→23:13)
[2021-12-19] MEDS: METOPROLOL TARTRATE 1MG/1ML-5ML VIAL IV PRN (06:56)
[2021-12-19 09:00] VITALS: BP 161/78
[2021-12-19] MEDS: PANTOPRAZOLE 40 MG/10 ML VIAL INJ IV SCH ×2 (09:13→23:13)
[2021-12-19] MEDS: LIDOCAINE VISCOUS 2% 15ML UD MT SCH ×2 (09:13→22:00)
[2021-12-19 12:50] VITALS: BP 163/79
[2021-12-19 17:09] VITALS: BP 144/85
[2021-12-19 22:00] VITALS: BP 151/77
[2021-12-19] MEDS: ATORVASTATIN 20 MG TAB PO SCH (23:13)
[2021-12-20 05:00] VITALS: BP 151/89
[2021-12-20] MEDS: METOPROLOL TARTRATE 1MG/1ML-5ML VIAL IV SCH ×3 (06:02→18:00)
[2021-12-20] MEDS: PIPERACILLIN-TAZOB 2.25GM 50 ML IV SCH ×3 (06:03→17:59)
[2021-12-20 09:00] VITALS: BP 157/84
[2021-12-20] MEDS: PANTOPRAZOLE 40 MG/10 ML VIAL INJ IV SCH ×2 (09:43→21:50)
[2021-12-20] MEDS: LIDOCAINE VISCOUS 2% 15ML UD MT SCH ×2 (09:43→21:50)
[2021-12-20 13:00] VITALS: BP 144/87
[2021-12-20 17:00] VITALS: BP 125/77
[2021-12-20] MEDS: ATORVASTATIN 20 MG TAB PO SCH (21:51)
[2021-12-21] MEDS: METOPROLOL TARTRATE 1MG/1ML-5ML VIAL IV SCH ×4 (00:34→17:58)
[2021-12-21] MEDS: PIPERACILLIN-TAZOB 2.25GM 50 ML IV SCH ×4 (00:37→17:58)
[2021-12-21 08:30] VITALS: BP 158/81
[2021-12-21] MEDS: PANTOPRAZOLE 40 MG/10 ML VIAL INJ IV SCH ×2 (09:26→21:59)
[2021-12-21] MEDS: LIDOCAINE VISCOUS 2% 15ML UD MT SCH ×2 (10:00→21:59)
[2021-12-21 10:03] VITALS: BP 158/81
[2021-12-21 12:58] VITALS: BP 151/89
[2021-12-21 17:04] VITALS: BP 158/85
[2021-12-21] MEDS: ATORVASTATIN 20 MG TAB PO SCH (21:59)
[2021-12-21 22:30] VITALS: BP 148/87
[2021-12-22] MEDS: METOPROLOL TARTRATE 1MG/1ML-5ML VIAL IV SCH ×2 (00:30→06:26)
[2021-12-22] MEDS: PIPERACILLIN-TAZOB 2.25GM 50 ML IV SCH ×5 (06:00→23:42)
[2021-12-22 09:00] VITALS: BP 148/90
[2021-12-22] MEDS: LIDOCAINE VISCOUS 2% 15ML UD MT SCH (10:14)
[2021-12-22] MEDS: PANTOPRAZOLE 40 MG/10 ML VIAL INJ IV SCH (10:15)
[2021-12-22 12:00] VITALS: BP 140/90
[2021-12-22 13:00] VITALS: BP 140/90
[2021-12-22] MEDS ORDERED: LIDOCAINE VISCOUS 2% 15ML UD MT PRN (13:00)
[2021-12-22] MEDS ORDERED: METOPROLOL TARTRATE 25 MG TAB PO ONE (13:00)
[2021-12-22 17:00] VITALS: BP 134/85
[2021-12-22] MEDS: ATORVASTATIN 20 MG TAB PO SCH (21:34)
[2021-12-22] MEDS: METOPROLOL TARTRATE 25 MG TAB PO SCH (21:35)
[2021-12-22 22:00] VITALS: BP 151/81
[2021-12-23 05:00] VITALS: BP 150/94
[2021-12-23] MEDS: PIPERACILLIN-TAZOB 2.25GM 50 ML IV SCH ×3 (05:37→17:55)
[2021-12-23 09:00] VITALS: BP 152/96
[2021-12-23] MEDS: METOPROLOL TARTRATE 25 MG TAB PO SCH (09:40)
[2021-12-23 13:00] VITALS: BP 138/74
[2021-12-23 17:17] VITALS: BP 162/96
[2021-12-23] MEDS: METOPROLOL TARTRATE 1MG/1ML-5ML VIAL IV PRN (17:21)
== END 2021-12-23 19:21 | disposition home health service (06) | DRG 870 ==
LOC: ER 08:49 → EDBD 08:49 → TELE 12:36 → ICU WEST 11-21 03:15 → TELE-EAST 12-14 02:10
PROVIDERS: ADMIT Internal Medicine; ATTEND Internal Medicine
PROC: 05HC33Z Insertion of Infusion Device into Left Basilic Vein, Percutaneous Approach (ICD-10-PCS; 2021-11-17)
PROC: B54NZZA Ultrasonography of Left Upper Extremity Veins, Guidance (ICD-10-PCS; 2021-11-17)
PROC: 5A1955Z Respiratory Ventilation, Greater than 96 Consecutive Hours (ICD-10-PCS; 2021-11-18)
PROC: 0BH17EZ Insertion of Endotracheal Airway into Trachea, Via Natural or Artificial Opening (ICD-10-PCS; 2021-11-18)
PROC: 009U3ZX Drainage of Spinal Canal, Percutaneous Approach, Diagnostic (ICD-10-PCS; principal; 2021-11-20)
PROC: 30233N1 Transfusion of Nonautologous Red Blood Cells into Peripheral Vein, Percutaneous Approach (ICD-10-PCS; 2021-12-08)
PROC: 5A09357 Assistance with Respiratory Ventilation, Less than 24 Consecutive Hours, Continuous Positive Airway Pressure (ICD-10-PCS; 2021-12-11)
PROC: 5A09357 Assistance with Respiratory Ventilation, Less than 24 Consecutive Hours, Continuous Positive Airway Pressure (ICD-10-PCS; 2021-12-12)
PROC: 06HM33Z Insertion of Infusion Device into Right Femoral Vein, Percutaneous Approach (ICD-10-PCS; 2021-12-12)
DX: A41.89 Other specified sepsis (principal); U07.1 COVID-19; N17.0 Acute kidney failure with tubular necrosis; J96.01 Acute respiratory failure with hypoxia; J12.82 Pneumonia due to coronavirus disease 2019; J96.02 Acute respiratory failure with hypercapnia; G93.41 Metabolic encephalopathy; E44.0 Moderate protein-calorie malnutrition; E87.0 Hyperosmolality and hypernatremia; J98.11 Atelectasis; K62.5 Hemorrhage of anus and rectum; Z68.1 Body mass index [BMI] 19.9 or less, adult; G72.81 Critical illness myopathy; J44.0 Chronic obstructive pulmonary disease with (acute) lower respiratory infection; J44.1 Chronic obstructive pulmonary disease with (acute) exacerbation; Z99.11 Dependence on respirator [ventilator] status; N39.0 Urinary tract infection, site not specified; D64.9 Anemia, unspecified; I50.9 Heart failure, unspecified; D72.819 Decreased white blood cell count, unspecified; E86.0 Dehydration; I11.0 Hypertensive heart disease with heart failure; G30.9 Alzheimer's disease, unspecified; D69.6 Thrombocytopenia, unspecified; E83.42 Hypomagnesemia; E87.6 Hypokalemia; R13.10 Dysphagia, unspecified; B96.5 Pseudomonas (aeruginosa) (mallei) (pseudomallei) as the cause of diseases classified elsewhere; B96.89 Other specified bacterial agents as the cause of diseases classified elsewhere; E78.5 Hyperlipidemia, unspecified; R79.89 Other specified abnormal findings of blood chemistry; E83.39 Other disorders of phosphorus metabolism; F02.80 Dementia in other diseases classified elsewhere, unspecified severity, without behavioral disturbance, psychotic disturbance, mood disturbance, and anxiety; F17.210 Nicotine dependence, cigarettes, uncomplicated; G62.9 Polyneuropathy, unspecified; G89.4 Chronic pain syndrome; Z79.899 Other long term (current) drug therapy; Z90.710 Acquired absence of both cervix and uterus; Z88.2 Allergy status to sulfonamides; Z88.5 Allergy status to narcotic agent; Z90.49 Acquired absence of other specified parts of digestive tract; Z91.81 History of falling
CPT/HCPCS: 31500; 36415; 36556; 36600; 70450; 71045; 71260; 74177; 80048; 80053; 80202; 80307; 80320; 81001; 82040; 82565; 82805; 82945; 82962; 83605; 83735; 84100; 84157; 84478; 84484; 85007; 85014; 85018; 85025; 85027; 85379; 85610; 85730; 86850; 86900; 86901; 86920; 87040; 87070; 87077; 87081; 87086; 87088; 87186; 87205; 87426; 87529; 88108; 89051; 92507; 92610; 93005; 93970; 94002; 94003; 94640; 96365; 96375; 97110; 97116; 97163; 97530; 99291; C9113; G0378; J0131; J0696; J1100; J1450; J1815; J2250; J2543; J2704; J7060; P9047

== ENCOUNTER 2022-03-06 15:17 | Inpatient (IN) | payer OTHER, MEDICAID ==
[~2022-03-06] VITALS: Ht 165.1 cm; Wt 46.0 kg
[2022-03-06 16:17] LABS: Basophils # (auto) 0.1 10 ^3/uL (0-0.2); Eosinophils # (auto) 0.1 10 ^3/uL (0-0.8); Hematocrit 25.3 % (36.0-46.0); Hemoglobin 8.9 g/dL (12.2-16.2); Lymphocytes # (auto) 2.5 10 ^3/uL (0.4-5.4); Lymphocytes % (auto) 40.9 % (10.0-50.0); Mean Corpuscular Hemoglobin 30.4 pg (28.0-32.0); Mean Corpuscular Hgb Conc. 35.2 g/dL (32.0-36.0); Mean Corpuscular Volume 86.3 fL (80.0-100.0); Monocytes # (auto) 0.6 10 ^3/uL (0-1.3); Monocytes % (auto) 9.5 % (0.0-12.0); Neutrophils # (auto) 2.8 10 ^3/uL (1.6-8.6); Neutrophils % (auto) 46.6 % (37.0-80.0); Nucleated Red Blood Cells % 0.1 %; Red Blood Cells 2.94 10^6/uL (4.0-5.20); Red Cell Distribution Width 17.4 % (11.8-14.3)
[2022-03-06 16:37] LABS: INR 1.03 (0.9-1.15)
[2022-03-06 16:45] LABS: Albumin 2.3 g/dL (3.4-5.0); Calcium 8.8 mg/dL (8.5-10.1); Potassium 5.2 mmol/L (3.5-5.1)
[2022-03-06 16:48] LABS: Bilirubin, Total 0.2 mg/dL (0.2-1.0); Total Protein 5.6 g/dL (6.4-8.2)
[2022-03-06] MEDS ORDERED: ONDANSETRON HCL 4 MG/2 ML VIAL IV PRN (21:15)
[2022-03-06] MEDS ORDERED: ACETAMINOPHEN 325 MG TAB PO PRN (21:15)
[2022-03-06] MEDS ORDERED: DOCUSATE SOD 100 MG CAP PO PRN (21:15)
[2022-03-06] MEDS ORDERED: SODIUM ZIRCONIUM CYCL 10 GM PAK PO ONE (21:15)
[2022-03-06] MEDS ORDERED: ALBUMIN 25% 50 ML IV ONE (21:30)
[2022-03-06] MEDS ORDERED: NITROGLYCERIN 0.4 MG SL TAB SL PRN (22:00)
[2022-03-06] MEDS ORDERED: MORPHINE SULFATE INJECTION 2 MG/ML SYRG IV PRN (22:00)
[2022-03-06] MEDS: SODIUM CHLOR 0.9% PF (SALINE LOCK) 10ML VIAL/SYR IV SCH (22:13)
[2022-03-06] MEDS: ASCORBIC ACID 500 MG TAB PO SCH (22:23)
[2022-03-06 22:35] VITALS: BP 148/76
[2022-03-06 23:26] VITALS: BP 148/76
[2022-03-07 05:00] VITALS: BP 143/77
[2022-03-07] MEDS: SODIUM CHLOR 0.9% PF (SALINE LOCK) 10ML VIAL/SYR IV SCH ×3 (05:32→21:21)
[2022-03-07 09:00] VITALS: BP 142/82
[2022-03-07] MEDS: ZINC SULFATE 220mg CAP or TAB PO SCH (10:17)
[2022-03-07] MEDS: MULTIPLE VITAMIN TAB PO SCH (10:17)
[2022-03-07] MEDS: ASCORBIC ACID 500 MG TAB PO SCH ×2 (10:17→21:21)
[2022-03-07 12:05] LABS: % Iron Saturation 16.5 % (15-50)
[2022-03-07 12:21] LABS: Folate (Folic Acid) > 24.00 ng/mL (5.38-24)
[2022-03-07 13:00] VITALS: BP 147/83
[2022-03-07] MEDS ORDERED: POLYETHYLENE GLYCOL 17 GM PWDR PO ONE (16:15)
[2022-03-07 16:44] VITALS: BP 138/71
[2022-03-07] MEDS ORDERED: FER325T PO (17:13)
[2022-03-07] MEDS ORDERED: LEV50T PO (17:13)
[2022-03-07] MEDS ORDERED: LACTULOSE 20Gm/30ML SOLN PO ONE (18:45)
[2022-03-07 22:00] VITALS: BP 128/85
[2022-03-07] MEDS ORDERED: DOCUSATE SOD 100 MG CAP PO SCH ×2 (22:00)
[2022-03-08 05:00] VITALS: BP 133/86
[2022-03-08] MEDS: SODIUM CHLOR 0.9% PF (SALINE LOCK) 10ML VIAL/SYR IV SCH ×3 (06:00→21:55)
[2022-03-08] MEDS: DOCUSATE ORAL LIQUID 100 MG/10 ML UD PO SCH ×3 (06:00→21:56)
[2022-03-08 09:00] VITALS: BP 116/70
[2022-03-08] MEDS: MULTIPLE VITAMIN TAB PO SCH (10:10)
[2022-03-08] MEDS: ASCORBIC ACID 500 MG TAB PO SCH ×2 (10:10→21:56)
[2022-03-08] MEDS: ZINC SULFATE 220mg CAP or TAB PO SCH (10:10)
[2022-03-08] MEDS ORDERED: BISACODYL 10 MG RECT SUPP PR ONE (10:45)
[2022-03-08] MEDS ORDERED: LACTULOSE 20Gm/30ML SOLN PO ONE (10:45)
[2022-03-08] MEDS ORDERED: DOCU-94 PO (10:47)
[2022-03-08] MEDS: FERROUS SULFATE 325mg EC TAB PO SCH ×2 (11:24→18:55)
[2022-03-08] MEDS: LEVOTHYROXINE SODIUM 25 MCG TAB PO SCH (11:24)
[2022-03-08 13:00] VITALS: BP 127/83
[2022-03-08] MEDS ORDERED: SODIUM CHLORIDE 0.9% 1,000 ML IV ONE (13:30)
[2022-03-08 17:00] VITALS: BP 131/77
[2022-03-08] MEDS: DAKINS QUARTER STR 0.125% (NaHypochlorite) 473 ML TOPICAL SOL TOP SCH (18:52)
[2022-03-08 19:03] LABS: Basophils # (auto) 0 10 ^3/uL (0-0.2); Basophils % (auto) 0.7 % (0.0-2.0); Eosinophils # (auto) 0 10 ^3/uL (0-0.8); Eosinophils % (auto) 0.7 % (0.0-7.0); Hematocrit 26.4 % (36.0-46.0); Hemoglobin 8.9 g/dL (12.2-16.2); Lymphocytes % (auto) 39.5 % (10.0-50.0); Mean Corpuscular Hgb Conc. 33.9 g/dL (32.0-36.0); Mean Corpuscular Volume 85.7 fL (80.0-100.0); Monocytes # (auto) 0.5 10 ^3/uL (0-1.3); Monocytes % (auto) 10.3 % (0.0-12.0); Neutrophils # (auto) 2.5 10 ^3/uL (1.6-8.6); Neutrophils % (auto) 48.8 % (37.0-80.0); Nucleated Red Blood Cells % 0.1 %; Red Blood Cells 3.07 10^6/uL (4.0-5.20); Red Cell Distribution Width 17.4 % (11.8-14.3); White Blood Cell 5.2 10^3/uL (4.4-10.8)
[2022-03-08 21:37] VITALS: BP 124/65
[2022-03-09 04:47] VITALS: BP 109/67
[2022-03-09] MEDS: SODIUM CHLOR 0.9% PF (SALINE LOCK) 10ML VIAL/SYR IV SCH ×2 (06:02→12:42)
[2022-03-09] MEDS: DOCUSATE ORAL LIQUID 100 MG/10 ML UD PO SCH ×2 (06:02→14:00)
[2022-03-09] MEDS: LEVOTHYROXINE SODIUM 25 MCG TAB PO SCH (06:04)
[2022-03-09] MEDS ORDERED: PANT40T PO ×2 (06:13→14:05)
[2022-03-09 07:28] LABS: Basophils # (auto) 0 10 ^3/uL (0-0.2); Basophils % (auto) 1.1 % (0.0-2.0); Eosinophils # (auto) 0.1 10 ^3/uL (0-0.8); Eosinophils % (auto) 1.2 % (0.0-7.0); Hematocrit 25.8 % (36.0-46.0); Hemoglobin 8.8 g/dL (12.2-16.2); Lymphocytes % (auto) 44.6 % (10.0-50.0); Mean Corpuscular Hemoglobin 29.4 pg (28.0-32.0); Mean Corpuscular Hgb Conc. 34.1 g/dL (32.0-36.0); Mean Corpuscular Volume 86.1 fL (80.0-100.0); Monocytes # (auto) 0.4 10 ^3/uL (0-1.3); Neutrophils % (auto) 44.1 % (37.0-80.0); Red Cell Distribution Width 17.2 % (11.8-14.3); White Blood Cell 4.5 10^3/uL (4.4-10.8)
[2022-03-09] MEDS: FERROUS SULFATE 325mg EC TAB PO SCH ×2 (08:00→12:00)
[2022-03-09 09:00] VITALS: BP 120/71
[2022-03-09] MEDS: MULTIPLE VITAMIN TAB PO SCH (09:08)
[2022-03-09] MEDS: ZINC SULFATE 220mg CAP or TAB PO SCH (09:08)
[2022-03-09] MEDS: ASCORBIC ACID 500 MG TAB PO SCH (09:08)
[2022-03-09] MEDS ORDERED: PANTOPRAZOLE 40 MG TAB PO SCH (10:00)
[2022-03-09] MEDS: DAKINS QUARTER STR 0.125% (NaHypochlorite) 473 ML TOPICAL SOL TOP SCH (10:59)
[2022-03-09] MEDS ORDERED: LIDOCAINE VISCOUS 2% 15ML UD ONE (11:31)
[2022-03-09] MEDS ORDERED: SODIUM CHLORIDE LOCK 10 ML ONE (11:31)
[2022-03-09] MEDS: MIDAZOLAM HCL 5 MG/ML-1ML VIAL ONE ×2 (12:10→12:13)
[2022-03-09] MEDS: fentaNYL CITRATE 100 MCG/2 ML VL ONE ×2 (12:10→12:14)
[2022-03-09] MEDS: diphenhdrAMINE HCL 50 MG/1 ML VL ONE ×2 (12:13→12:17)
[2022-03-09 13:00] VITALS: BP 139/84
[2022-03-09] MEDS ORDERED: SUCR1TAB22 OR (14:05)
[2022-03-09 17:04] VITALS: BP 143/85
== END 2022-03-09 17:10 | disposition home health service (06) | DRG 812 ==
LOC: ER 15:17 → EDUNIT# 15:17 → EDBD 15:17 → TELE 21:52 → TELE-EAST 22:32 → ER 22:32 → TELE-EAST 22:35
PROVIDERS: ADMIT Nurse Practitioner Family; ATTEND Internal Medicine
PROC: 0DB68ZX Excision of Stomach, Via Natural or Artificial Opening Endoscopic, Diagnostic (ICD-10-PCS; 2022-03-09)
PROC: 0DB98ZX Excision of Duodenum, Via Natural or Artificial Opening Endoscopic, Diagnostic (ICD-10-PCS; principal; 2022-03-09 12:05)
DX: D50.9 Iron deficiency anemia, unspecified (principal); K22.10 Ulcer of esophagus without bleeding; K26.9 Duodenal ulcer, unspecified as acute or chronic, without hemorrhage or perforation; K29.70 Gastritis, unspecified, without bleeding; K29.80 Duodenitis without bleeding; E87.5 Hyperkalemia; E88.09 Other disorders of plasma-protein metabolism, not elsewhere classified; L89.159 Pressure ulcer of sacral region, unspecified stage; E03.9 Hypothyroidism, unspecified; F03.90 Unspecified dementia, unspecified severity, without behavioral disturbance, psychotic disturbance, mood disturbance, and anxiety; K25.9 Gastric ulcer, unspecified as acute or chronic, without hemorrhage or perforation; K44.9 Diaphragmatic hernia without obstruction or gangrene; E78.5 Hyperlipidemia, unspecified; F17.210 Nicotine dependence, cigarettes, uncomplicated; I11.0 Hypertensive heart disease with heart failure; Z20.822 Contact with and (suspected) exposure to COVID-19; D63.8 Anemia in other chronic diseases classified elsewhere; G62.9 Polyneuropathy, unspecified; I50.9 Heart failure, unspecified; J44.9 Chronic obstructive pulmonary disease, unspecified; Z90.710 Acquired absence of both cervix and uterus; Z88.2 Allergy status to sulfonamides; Z88.5 Allergy status to narcotic agent; Z90.49 Acquired absence of other specified parts of digestive tract
CPT/HCPCS: 36415; 43239; 71045; 80053; 82270; 82607; 82746; 83540; 83550; 84439; 84443; 84484; 85025; 85610; 85730; 86850; 86900; 86901; 93306; 96365; 97163; G0378; J2250